=== PATIENT | male | born 1950 | race Caucasian/White ===

== ENCOUNTER → 2016-09-20 | Outpatient (CLI) | payer OTHER ==
[~2016-09-20] VITALS: Ht 177.8 cm; Wt 94.1 kg
[~2016-09-20] MED LIST: AMBIEN 10 MG TA10 MG PO; CELEXA 10 MG TA10 M1 PO; CHANTIX1 MG PO; FENOFIBRIC ACI135 MG PO; FLOMAX0.4 MG PO; GABAPENTIN600 M1 PO; GLUCOPHAGE500 MG PO; HYDROCODON-ACE1 EAC7 PO; HYDROXYCHLOROQ200 M1 PO; JANUMET 50-5001 EACH PO; JANUMET XR 1001 EACH PO; LEVEMIR100 UNIT/1 IM; LIPITOR40 MG PO; MELOXICAM15 MG PO; MULTIVITAMINS1 EAC7 PO; NOVOLOG100 UNIT/M SUBQ; TACLONEX OINTME60 GM TP; TIZANIDINE HCL4 M1 PO; TRAMADOL 50 MG50 MG PO
--- NOTE | ~2016-09-20 | HPC ---
[facility] [place] [address] PAIN MANAGEMENT CONSULTATION Name: ANGEL GODDARD Room #: REG [facility] Dipak#: [id number] Admission: 09/20/16 Attend Phys: Errol Botello DO Discharge: Date of : 51 Report #: [id number] THIS REPORT FOR: //name// CC: Rufino Botello The patient is a pleasant 65-year-old gentleman last seen in the pain clinic 04/30/2016, diagnosed with symptomatic lumbar radiculopathy, prior had good relief with epidural injections greater than 60% relief. He sought preauthorization for repeat epidural injections, had some difficulty getting the coverage, but he ultimately return to the pain clinic with ongoing radicular symptoms with authorization for epidural injection under fluoroscopy. The patient notes the pain is left greater than right, but if he stands it does, bilateral pain is with walking or standing greater than 20 minutes, posterior leg into the foot. He has been taking hydrocodone, Meloxicam and tizanidine for Dr. Echevarria with some efficacy. PHYSICAL EXAMINATION: Today shows pleasant 65-year-old gentleman, BMI is 29.8 kilograms per meter squared. Vital signs stable. Rises from chair using armrests, antalgic gait, positive straight leg raise on the left, decreased hip flexion strength. Lumbar flexion is limited about 80 degrees, mildly ataxic. ASSESSMENT: Symptomatic lumbar radiculopathy secondary to fairly significant spinal stenosis, does have narrowing down to 6 mm at L3-L4, 6 mm at L4-L5 with neural foraminal narrowing. ASSESSMENT: Symptomatic lumbar radiculopathy. RECOMMENDATION: Lumbar epidural injection under fluoroscopy today at L4-L5 left to the midline. Follow up in 2-3 weeks for reevaluation. Consider transforaminal epidural injection if indicated clinically. ASSESSMENT: Symptomatic lumbar radiculopathy secondary to spinal stenosis. PROCEDURE: Lumbar epidural steroid injection. PROCEDURE NOTE: After both written and informed consent to include risk of spinal cord damage, increased pain, weakness and dural puncture, the patient was taken to the fluoroscopy suite, placed in the prone position. After sterile prep and drape, a skin wheal with lidocaine was raised. A 22-gauge epidural Tuohy needle was inserted in the midline at L4-L5 with good loss to resistance. Negative aspiration for cerebrospinal fluid or blood was noted. Then 1 mL of Omnipaque under biplanar fluoroscopy showed good spread within the epidural space. This was followed with 80 mg of triamcinolone plus 1 mL of 1.5% preservative-free Xylocaine, 0.5 mL Xylocaine was then injected to flush the [address] [address] PAIN MANAGEMENT CONSULTATION Name: ANGEL GODDARD Room #: REG CLJovanna Quesada#: [id number] Admission: 09/20/16 Attend Phys: Errol Botello DO Discharge: Date of : 51 Report #: [id number] needle; it was removed. The patient was monitored for an appropriate period of time and discharged in good and stable condition. By: [id number] Errol Botello DO /nt
[2016-09-20 13:15] VITALS: BP 132/76
== END | disposition home or self-care (01) ==
LOC: PAIN 12:39
DX: M54.16 Radiculopathy, lumbar region (principal); Z87.891 Personal history of nicotine dependence

== ENCOUNTER → 2016-10-11 | Outpatient (CLI) | payer OTHER ==
--- NOTE | ~2016-10-11 | HPC ---
[facility] [place] [address] PAIN MANAGEMENT CONSULTATION Name: ANGEL GODDARD Room #: REG [facility] Dipak#: [id number] Admission: 10/11/16 Attend Phys: Errol Botello DO Discharge: Date of : 51 Report #: [id number] THIS REPORT FOR: //name// CC: Rufino Botello The patient is a pleasant 65-year-old gentleman, last seen in the pain clinic 09/20/2016. He was given a midline epidural injection at L4-L5 with significant improvement of baseline pain, the patient notes 50% improvement in his functional status. Incidentally, he has had prior injections in 2013, again with overall improvement of functional status. He returns to pain clinic today. To his credit, he has cut down from 2 packs of cigarettes a day to 1 pack of cigarettes a day. He was; however, further counseled regarding smoking cessation. He notes he is at least 50% improvement in functional status, states he still has a neurogenic claudication, but his recovery time is less than half had been, he can walk for 5-10 minutes before he has to sit down, but he "recovers" and is able to walk much earlier. PHYSICAL EXAMINATION: Relatively unchanged. He has ongoing pain primarily in the left anterior thigh and down the leg. Some weakness with hip flexion. Denies bowel or bladder continence changes or . ASSESSMENT: Symptomatic lumbar radiculopathy, incremental improvement with one epidural injection. RECOMMENDATION: Repeat epidural injection with fluoroscopy today. Follow up in 3-4 weeks for reevaluation. PROCEDURE NOTE Lumbar epidural injection under fluoroscopy in a gentleman with diabetes. PROCEDURE: Lumbar epidural injection under fluoroscopy. PROCEDURE NOTE: After both written and informed consent to include risk of spinal cord damage, increased pain, weakness and dural puncture, the patient was taken to the fluoroscopy suite, placed in the prone position. After sterile prep and drape, a skin wheal with lidocaine was raised. A 22-gauge epidural Tuohy needle was inserted in the midline at L4-L5 with good loss to resistance. Negative aspiration for cerebrospinal fluid or blood was noted. Then 1 mL of Omnipaque under biplanar fluoroscopy showed good spread within the epidural space. This was followed with 60 mg of triamcinolone plus 1 mL of 1.5% preservative-free Xylocaine, 0.5 mL Xylocaine was then injected to flush the [address] [address] PAIN MANAGEMENT CONSULTATION Name: ANGEL GODDARD Room #: REG CLI Dipak#: [id number] Admission: 10/11/16 Attend Phys: Errol Botello DO Discharge: Date of : 51 Report #: [id number] needle; it was removed. The patient was monitored for an appropriate period of time and discharged in good and stable condition. By: [id number] Errol Botello DO /paula
== END ==
LOC: PAIN 06:30
DX: M54.16 Radiculopathy, lumbar region (principal); F17.210 Nicotine dependence, cigarettes, uncomplicated; I10 Essential (primary) hypertension

== ENCOUNTER → 2017-02-16 | Outpatient (CLI) | payer OTHER ==
[~2017-02-16] MED LIST changes: +ASPIR 8181 M1 PO; +BYSTOLIC 5 MG5 M1 PO; +COZAAR 50 MG TA50 M2 PO; -LEVEMIR100 UNIT/1 IM; +LEVEMIR100 UNIT/1 SUBQ; +PLAVIX 75 MG TA75 M1 PO; +PROAIR HFA8.5 GM INH; +TRADJENTA5 MG
== END ==
LOC: ULTRA
DX: Z01.818 Encounter for other preprocedural examination (principal)

== ENCOUNTER 2017-02-28 05:04 | Inpatient (IN) | payer OTHER ==
[2017-02-17 09:50] LABS: HEMATOCRIT 29.5 % (42.0-52.0); HEMOGLOBIN 10.3 gm/dL (14.0-18.0); MCH 33.9 pg (26.0-34.0); RBC 3.05 mil/uL (4.50-6.00); RDW 13.8 % (10.5-14.5); WBC 2.7 thou/uL (4.0-11.0)
[2017-02-17 10:02] LABS: CALCIUM 9.3 mg/dL (8.5-10.1); CREATININE 1.5 mg/dL (0.7-1.3); POTASSIUM 3.6 mmol/L (3.5-5.1)
[2017-02-17 10:04] LABS: APTT 25.7 Seconds (24.5-32.8); INR 1.2
[2017-02-17 10:59] LABS: URINE BILIRUBIN NEGATIVE (Negative); URINE BLOOD NEGATIVE (Negative); URINE COLOR YELLOW; URINE GLUCOSE-RANDOM* TRACE (Negative); URINE KETONES NEGATIVE (Negative); URINE LEUKOCYTES-REFLEX NEGATIVE (Negative); URINE PROTEIN (DIPSTICK) NEGATIVE (Negative); URINE SPECIFIC GRAVITY >= 1.030 (1.003-1.035); URINE UROBILINOGEN 0.2 E.U./dl (0.2-1.0)
[~2017-02-28] VITALS: Ht 177.8 cm; Wt 94.0 kg
--- NOTE | ~2017-02-28 | EKG ---
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
--- NOTE | ~2017-02-28 | HC ---
[facility] [place] [address] CONSULTATION Name: ANGEL GODDARD Room #: 219-P [facility] IN .R.#: [id number] Admission: 03/01/17 Attend Phys: Fernando Medeiros MD Discharge: 03/08/17 Date of : 51 Report #: [id number] THIS REPORT FOR: //name// CC: Fernando Orourkemarcelina Mcclure DATE OF SERVICE: 03/08/2017 HISTORY OF PRESENT ILLNESS: This is a 66-year-old white male with history of coronary artery disease, who underwent coronary artery bypass grafting x 5. His course has been complicated by acute hypoxemic respiratory failure, prolonged ICU stay, atrial fibrillation with rapid ventricular rate, acute renal insufficiency, diabetes. He has been followed closely by Cardiology, Pulmonary Medicine. Nephrology as well as Cardiovascular Surgery and Internal Medicine. He has medical complexity with generalized debilitation. He needs 6 liters with activity, 3 liters at rest. We are seeing him in rehabilitation medicine consultation. PAST MEDICAL HISTORY: Peripheral vascular disease with iliac arterial for seizure in both legs, longstanding diabetes mellitus, hypertension, hypercholesterolemia. PAST SURGICAL HISTORY: Includes the previous hernia repair. MEDICATIONS: Meloxicam, fenofibrate, Neurontin, insulin, atorvastatin. SOCIAL HISTORY: Smoker 1 pack a day. He uses some alcohol. Lives by himself. ALLERGIES: ALLERGIES ARE NOTED TO AVANDIA. REVIEW OF SYSTEMS: Lives in a house alone, noted assist device, 3 steps in. He does have adult kids who live locally. Did not offer any current complaints of chest pain, shortness of breath, abdominal discomfort. Notes he does become short of breath with fairly limited activity. No focal extremity pain complaints. He notes he does have some decreased sensation of his feet with some apparent peripheral neuropathy with his diabetes. Did not offer any complaints of swallowing problems or headaches. PHYSICAL EXAMINATION: GENERAL: A 66-year-old white male in no obvious distress. VITAL SIGNS: Last recorded temperature 36.4, pulse 72, respirations 20, blood pressure 137/89. He is alert. He is pleasant. HEENT: Appeared to be benign. NEUROLOGIC: Cranial nerves are grossly intact. Facies are symmetric. He is on nasal prong O2, currently 3 liters. He has functional range of motion of both [facility] [address] [place] [address] CONSULTATION Name: ANGEL GODDARD Room #: 219-P [facility] IN [facility].#: [id number] Admission: 03/01/17 Attend Phys: Fernando Medeiros MD Discharge: 03/08/17 Date of : 51 Report #: [id number] upper extremities. Strength is grade 4-/5. DTRs are trace to 1. Lower extremities, no focal calf swelling, trace distal lower extremity edema, functional range of motion with strength grade 4-/5. 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 Functionally, he is mod assist with sit to stand and ambulated 30 feet min assist with a roller walker. He did need up to 6 liters oxygen in Occupational Therapy has been mod assist. At rest is at 3 liters. ASSESSMENT: A 66-year-old white male with the following problem list: 1. Medical complexity with generalized debilitation. 2. Acute hypoxemic respiratory failure with atelectasis and effusions still on nasal prong O2, 3 liters with 6 liters with activity. 3. Pulmonary nodule, right upper lobe, question atelectasis. Will need followup. 4. Coronary artery bypass grafting x 5 on 03/01/2017. 5. Acute renal insufficiency. 6. Diabetic neuropathy. 7. Question of systemic lupus erythematosus. Note that the plan was to hold Plaquenil and recheck serologies. PLAN: The patient is a candidate for an acute in-hospital inpatient rehabilitation stay. From a preadmission screening perspective: 1. Prior level of function is well delineated above. 2. Expected level of improvement would be for the patient to become modified independent with transfers, mobility and ADLs with hopes of returning back to the prior living situation. 3. Evaluation of the patient's risk for clinical complications. The patient does have multiple medical comorbidities as noted above. 4. Condition that caused the need for rehabilitation is the medical complexity with generalized debilitation. 5. Treatments needed would include PT and OT 1 to 1-1/2 hours per day each five days a week throughout the duration of the acute inpatient rehabilitation stay. 6. Anticipated discharge destination would be back to the home setting. 7. Would anticipate home healthcare therapies as the patient is ready for discharge. 8. The patient meets diagnostic criteria for an acute in-hospital inpatient rehabilitation stay. He meets medical necessity criteria. He does have the tolerance for an acute in-hospital inpatient rehabilitation stay and has appropriate discharge goals back to the home setting. By: 1004 Jacinto Montenegro MD /[facility]
--- NOTE | ~2017-02-28 | EKG ---
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 : 1950 Requested By: Leatha Alicea Order Number: [id number] MD: John Patterson Measurements Intervals [place] Rate: 74 P: 16 WV: 160 QRS: 36 QRSD: 144 T: -13 QT: 462 QTc: 513 Interpretive Statements Sinus rhythm Right bundle branch block Inferior infarct, age indeterminate Compared to ECG 02/17/2017 09:44:05 Right bundle-branch block now present Myocardial infarct finding now present Electronically Signed On 03-02-2017 20:14:09 CDT by John Patterson [email or web address] <ELECTRONICALLY SIGNED> By: John Patterson MD 03/02/172013 5 5 John Patterson MD /EPI
--- NOTE | ~2017-02-28 | HC ---
[facility] [place] [address] CONSULTATION Name: ANGEL GODDARD Room #: 240-P ADM IN M.R.#: [id number] Admission: 03/01/17 Attend Phys: Fernando Medeiros MD Discharge: Date of : 51 Report #: [id number] THIS REPORT FOR: //name// CC: Fernando Krishnamurthyramila Mcclure DATE OF SERVICE: 03/04/2017 REASON FOR CONSULTATION: Acute respiratory failure. Forty minutes of critical care time. IMPRESSION: 1. Acute hypoxemic respiratory failure, likely related to sedation, debilitation and atelectasis. 2. Status post coronary artery bypass graft for coronary artery disease. 3. Acute on chronic renal failure. 4. Hypertension. 5. Diabetes. 5. Hypotension. 6. Pneumothorax, resolved with chest tube. PLAN: Monitor mental status closely, use Narcan p.r.n., continue BiPAP, continue EzPAP as able, being conscious that he had a pneumothorax post-surgery. Usual ICU protocol. HISTORY OF PRESENT ILLNESS: A 66-year-old with history of diabetes with neuropathy, 5-vessel coronary bypass on 03/01, was doing well, this morning became less interactive, decreased mental status and hypoxic. We were called in urgent consultation. The patient was given Narcan and placed on BiPAP. We were at the uxmev-lr-gxviuego; however, he was speaking more. Saturation was improving, therefore, did not proceed with intubation. The patient followed commands. PAST MEDICAL HISTORY: Obtained from chart. HOME MEDICATIONS: Included fenofibrate, gabapentin, insulin, meloxicam, atorvastatin. ALLERGIES: AVANDIA. SOCIAL HISTORY: Positive for tobacco, a pack a day. Positive ETOH, lives alone. REVIEW OF SYSTEMS: Lethargic, unable to give history. Per chart, has peripheral vascular disease with iliac artery procedures, hernia repair. [facility] [address] [place] [address] CONSULTATION Name: ANGEL GODDARD Room #: 240-P [facility] IN [facility]#: [id number] Admission: 03/01/17 Attend Phys: Fernando Medeiros MD Discharge: Date of : 51 Report #: [id number] Diabetes. PHYSICAL EXAMINATION: On exam this morning, very lethargic. Temp 98.7, pulse 70, respiratory rate 20, BP 77/57. After Narcan and BiPAP and seen later this afternoon, he was on nasal cannula 8 liters, up in chair. I just discussed with nurse. At present, he is back in bed on BiPAP. Lungs: Decreased breath sounds. Heart: Regular. Abdomen: Bowel sounds present. Extremities showed trace edema. Moved all extremities. LABORATORY DATA: The pH 7.443, pCO2 28, pO2 85, bicarb 19 on 8 liters. Lactic acid 1.6. Venous Doppler was negative. Echo showed 55-60% EF. No pericardial effusion, PA pressure was 40. We will follow closely with you. By: 1858 0622 Eva Pace MD /paula
--- NOTE | ~2017-02-28 | HC ---
[facility] [place] [address] CONSULTATION Name: ANGEL GODDARD Room #: 240-P ADM IN M.R.#: [id number] Admission: 03/01/17 Attend Phys: Fernando Medeiros MD Discharge: Date of : 51 Report #: [id number] THIS REPORT FOR: //name// CC: Fernando Mcclure HISTORY OF PRESENT ILLNESS: The patient is a 66-year-old male who is status post bypass surgery. The patient has had progressive peripheral vascular disease with prior iliac interventions by Dr. Baker and subsequently was found to have significant 3-vessel coronary disease at that setting with some accelerating, but stable anginal symptoms. Admitted today and is status post 5-vessel bypass surgery. He is just now extubated and hemodynamically stable. Pacer is off. He is now in sinus rhythm in the 70s. He had a GUTHRIE to an LAD, radial Y graft to a diagonal, radial to ramus and then to an OM, and an SVG to the right, so 5-vessels in total. He has preserved LV function. Mild carotid disease was noted previously. History of hypertension, hypercholesterolemia, type 2 diabetes, and peripheral vascular disease as stated. Also, prior hernia repair and neck surgery. MEDICATIONS: At home: Insulin, fenofibrate, atorvastatin 40, Flexeril, fish oil, gabapentin, hydrocodone, insulin, Meloxicam, nystatin, tamsulosin, Zanaflex, and Ambien. SOCIAL HISTORY: Tobacco user, a pack a day. Moderate alcohol use. He is accompanied by a brother. ALLERGIES: AVANDIA. REVIEW OF SYSTEMS: Essentially negative except for stated above. PHYSICAL EXAMINATION: VITAL SIGNS: Pulse 70s, blood pressure 136/68. PA pressure is 30/16. GENERAL: He is awake, alert. He is extubated on a shield. HEENT: Eyes reveal xanthelasmas. Pharynx is clear. NECK: Shows preserved upstrokes without JVD or bruits. LUNGS: Clear anteriorly, slightly diminished in the bases. CARDIOVASCULAR: S1, S2 distant. Extensive bandage over his chest, he is postop. ABDOMEN: Soft, slightly distended, nontender. EXTREMITIES: Reveal trace of edema. Distal pulses diminished, but intact. NEUROLOGIC: Appears intact. MUSCULOSKELETAL: Generalized arthritic changes. LABORATORY DATA: Does show some significant anemia here postop, that actually has improved at 9.5 and 27.5 most recently. Creatinine 1.5. Potassium 4.4. ASSESSMENT: [facility] [address] [place] [address] CONSULTATION Name: ANGEL GODDARD Room #: [facility]#: [id number] Admission: 03/01/17 Attend Phys: Fernando Medeiros MD Discharge: Date of : 51 Report #: [id number] 1. Coronary artery disease with status post coronary artery bypass graft, 5 vessel, as stated above. 2. Hypertension. 3. Hypercholesterolemia. 4. Diabetes. 5. Peripheral vascular disease with a history of iliac stents recently. 6. Tobacco abuse. RECOMMENDATIONS AND PLAN: We will continue to follow postop course here. He is hemodynamically stable. Insulin drip, pressors, low-dose insulin and Cardene drips currently. We will presumably wean off. We will continue to follow with you. Thank you for allowing us to assist with the care of this patient. <ELECTRONICALLY SIGNED> By: Oliver Rangel MD, FACC 03/02/17 1622 2215 2301 Oliver Rangel MD, FACC /nt
--- NOTE | ~2017-02-28 | 2DMMODE ---
[facility] [place] [address] 2 D/M-MODE ECHOCARDIOGRAM Name: ANGEL GODDARD Room #: 240-P ADM IN M.R.#: [id number] Admission: 03/01/17 Attend Phys: Fernando Medeiros, Discharge: Date of : 52 Date of Service: 03/04/17 1033 Report #: [id number] THIS REPORT FOR: //name// APPROVED REPORT Study performed: 03/04/2017 09:08:56 EXAM: Limited 2D, Doppler, and color-flow Echocardiogram Patient Location: ICU Room #: 240 Status: stat BSA: 2.13 HR: 89 bpm BP: 77/54 mmHg Rhythm: NSR Other Information Study Quality: Adequate Technically limited study due to no patient mobility of cooperation. Indications STAT echo. Hypotension. Status post CABG 03/01/17 Tricuspid Valve TR Peak Bruce.: 2.48 m/s RAP Estimate: 15.00 mmHg TR Peak Gr.: 24.66 mmHg PA Pressure: 40.00 mmHg Left Ventricle The left ventricle is normal size. There is normal LV segmental wall motion. Mild concentric left ventricular hypertrophy. Left ventricular systolic function is normal. LVEF is 55-60%. Right Ventricle The right ventricle is normal size. Atria The left atrium size is normal. The right atrium size is normal. Aortic Valve The aortic valve is normal in structure. Mitral Valve The mitral valve is normal in structure. [facility] [address] [place] [address] 2 D/M-MODE ECHOCARDIOGRAM Name: ANGEL GODDARD Room #: 240-P ADM IN M.R.#: [id number] Admission: 03/01/17 Attend Phys: Fernando Medeiros, Discharge: Date of : 52 Date of Service: 03/04/17 1033 Report #: [id number] Tricuspid Valve The tricuspid valve is normal in structure. Mild tricuspid regurgitation. Estimated PAP of 40mmHg. Great Vessels IVC is dilated and collapses <50% with inspiration. Pericardium A pericardial effusion is present without echocardiographic evidence of tamponade. Left and right pleural effusions noted. <Conclusion> The left ventricle is normal size. LVEF is 55-60%. The right ventricle is normal size. The aortic valve is normal in structure. The mitral valve is normal in structure. A pericardial effusion is present without echocardiographic evidence of tamponade. Left and right pleural effusions noted. <ELECTRONICALLY SIGNED> By: Gee Khan MD 03/04/173 32 103 Gee Khan MD /INF
--- NOTE | ~2017-02-28 | EKG ---
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 : 1950 Requested By: Leatha Alicea Order Number: [id number] MD: John Patterson Measurements Intervals [place] Rate: 67 P: 43 NM: 174 QRS: 36 QRSD: 145 T: -8 QT: 477 QTc: 504 Interpretive Statements Sinus rhythm Right bundle branch block Inferior infarct, age indeterminate Lateral leads are also involved Compared to ECG 02/17/2017 09:44:05 Right bundle-branch block now present Myocardial infarct finding now present Electronically Signed On 03-02-2017 20:30:29 CDT by John Patterson [email or web address] <ELECTRONICALLY SIGNED> By: John Patterson MD 03/02/172029 29 29 John Patterson MD /EPI
--- NOTE | ~2017-02-28 | HC ---
[facility] [place] [address] CONSULTATION Name: ANGEL GODDARD Room #: 219-P [facility] IN .R.#: [id number] Admission: 03/01/17 Attend Phys: Fernando Medeiros MD Discharge: 03/08/17 Date of : 52 Report #: [id number] THIS REPORT FOR: //name// CC: Fernando Krishnamurthyramila Reddyaker DATE OF SERVICE: 03/03/2017 NEPHROLOGY CONSULTATION REASON FOR CONSULTATION: Acute kidney injury. HISTORY OF PRESENT ILLNESS: A 66-year-old gentleman with longstanding diabetes mellitus with neuropathy and some underlying apparent renal disease, underwent a 5-vessel coronary bypass 2 days ago. He typically has difficult to controlling rather high blood pressures. His blood pressure postoperatively has been low in the range of 90/60 consistently along with this, his urine output has dropped and creatinine has risen. PAST MEDICAL AND SURGICAL HISTORY: Peripheral vascular disease with iliac, arterial procedures in both legs, previous hernia repair, longstanding diabetes as mentioned, no known definitive retinopathy, hypertension, hypercholesterolemia. HOME MEDICATIONS: Included meloxicam, fenofibrate, gabapentin, insulin, atorvastatin. SOCIAL HISTORY: He is a smoker, smokes a pack a day. He uses some alcohol. He lives by himself. ALLERGIES: Reported to AVMARCELINOIA. REVIEW OF SYSTEMS: GENERAL: The patient is somewhat lethargic, seen in the ICU today. EYES: His vision is reasonably good. ENT: Hearing okay, swallows okay. Denies mouth ulcers. ENDOCRINE: Positive for the diabetes. RESPIRATORY: Maybe slightly short winded. CARDIAC: He has had of course the bypass. He has got pain at the site of his sternotomy. GASTROINTESTINAL: He has got a poor appetite currently, but not vomiting. GENITOURINARY: Aguila catheter in place. NEUROLOGIC: He has got peripheral neuropathy with numbness in the feet, some tingling. PHYSICAL EXAMINATION: [facility] [address] [place] [address] CONSULTATION Name: ANGEL GODDARD Room #: 219-P [facility]#: [id number] Admission: 03/01/17 Attend Phys: Fernando Medeiros MD Discharge: 03/08/17 Date of : 52 Report #: [id number] GENERAL: This is a chronically ill-appearing gentleman, weak, lethargic. SKIN: Unremarkable. SKELETAL: Well developed, well nourished. HEENT: Extraocular movements are full. Vision grossly intact. No scleral icterus. Hearing intact. Mucous membranes are slightly dry. Nasal cannula oxygen in place. NECK: Veins slightly distended. CHEST: Shows diminished breath sounds at the bases. HEART: Regular. ABDOMEN: Soft and nontender. The chest tubes are in place. EXTREMITIES: Show no edema. Peripheral pulses diminished. LABORATORY DATA: Hemoglobin is 9.3, white count 12.5, platelets 158. Sodium 137, potassium 5.7, chloride ____, bicarbonate 22, BUN 46, creatinine 3.3, glucose is 284. ASSESSMENT AND PLAN: 1. Acute kidney injury. Blood pressures down. Undoubtedly his kidneys have some difficulty with water regulating. He of course could have an acute kidney injury with acute tubular necrosis. Postoperatively, we will have to watch him closely. I will check urinary electrolytes and these should help. I will check urinalysis and this should help and we will certainly follow him closely. 2. Status post coronary bypass surgery. 3. Diabetes mellitus with peripheral neuropathy. 4. Difficult hypertension. <ELECTRONICALLY SIGNED> By: Oliver Ramos MD 03/09/17 1044 [id number] 0928 Oliver Ramos MD /nt
--- NOTE | ~2017-02-28 | O ---
[facility] [place] [address] [address] OPERATIVE REPORT Name: ANGEL GODDARD Room #: 219-P [facility] IN M.R.#: [id number] Admission: 03/01/17 Attend Phys: Fernando Medeiros MD Discharge: 03/08/17 Date of : 52 Report #: [id number] THIS REPORT FOR: //name// CC: Oliver Rangel MD [facility] Fernando Mcclure DATE OF SERVICE: 03/01/2017 PREOPERATIVE DIAGNOSES: Coronary artery disease, exertional angina. FINAL DIAGNOSES: Coronary artery disease, exertional angina. OPERATIVE PROCEDURE PERFORMED: 1. Coronary artery bypass grafting x 5 with left internal mammary artery to the left anterior descending, radial artery Y graft to diagonal vessel, radial artery graft to ramus intermedius and then to obtuse marginal and saphenous vein graft to posterior descending artery. 2. Left radial artery harvest. SURGEON: Fernando Medeiros MD. PUBLIC WELFARE DIRECTOR: GUILLE Torres. ANESTHESIA: General. OPERATIVE INDICATIONS: The patient is a 66-year-old male with known history of multiple medical problems. He has presented with symptoms consistent with exertional angina. He has undergone evaluation showing evidence of significant multivessel coronary artery disease with preserved left ventricular systolic function. The patient is admitted to the hospital now, brought to the operating room for coronary artery bypass grafting after informed consent has been obtained. DESCRIPTION OF PROCEDURE: The patient was brought to the operating room, placed on the OR table in supine position. After anesthesia was induced via the general endotracheal route and monitoring lines have been positioned, the patient was prepped and draped in sterile fashion with chlorhexidine. I first harvested radial artery from the left forearm using a Harmonic scalpel. Concomitantly, saphenous vein was harvested from left lower extremity using an endoscopic technique. I then performed a median sternotomy incision and left internal mammary artery was harvested in standard fashion. I then opened the pericardium, systemically anticoagulated the patient with heparin. Cannulae were placed in the ascending aorta and the right atrium. An antegrade cardioplegic cannula was positioned and cardiopulmonary bypass was begun. A retrograde cardioplegic cannula was positioned under low flow conditions, the [facility] [address] [place] [address] OPERATIVE REPORT Name: NAZANGEL MORROW Ulysses Room #: 219-P [facility] IN [facility].#: [id number] Admission: 03/01/17 Attend Phys: Fernando Medeiros MD Discharge: 03/08/17 Date of : 52 Report #: [id number] aorta was cross clamped, the heart was arrested with 800 mL cold antegrade cardioplegia, followed by 500 mL cold retrograde cardioplegia. This was augmented with topical ice slush. Diastolic arrest was achieved and maintained throughout this operation with intermittent doses of cold retrograde and antegrade cardioplegia as well as cardioplegia given down grafts and topical ice slush. We first opened up the right coronary artery right at its bifurcation. This vessel was very calcific and heavily diseased at this site. We were able to construct the distal anastomosis in an end-to-side fashion with 7-0 Prolene at this site with some difficulty due to the calcification present. Next, we opened up the obtuse marginal vessel. It was about a 1.8 mm vessel. A distal anastomosis was carried out in end-to-side fashion with 7-0 Prolene utilizing the radial artery. We then constructed a [id number]-[id number] anastomosis of this same segment of radial artery to the ramus intermedius vessel. This was done with 7-0 Prolene as well. This radial artery was brought around and anastomosed to the ascending aorta with 7-0 Prolene after a 4.8 punch aortotomy was created. Next, the saphenous vein graft was anastomosed to the ascending aorta with 6-0 Prolene after a 4.8 punch aortotomy was created. Next, we opened up the diagonal vessel. It was about a 1.7 mm vessel that was significantly diseased proximally as I was unable to pass a 1 mm probe for a significant distance. A distal anastomosis was carried out in end-to-side fashion with 7-0 Prolene. Next, the MIGUEL ANGEL was brought on the field. The MIGUEL ANGEL was of good size and had good flow. The LAD was opened. It was a 2 mm vessel and anastomosis was carried out in end-to-side fashion with 7-0 Prolene. The pedicle was tacked to the epicardium with 6-0 Prolene. We then took the short segment of radial artery graft and anastomosed it to the left internal mammary artery after a left internal mammary artery arteriotomy was made. This was done with 7-0 Prolene. Next, we gave warm cardioplegia both retrograde and antegrade. We took care to deair the ascending aorta and the vein graft. Under low flow conditions aortic crossclamp was released to begin the period of reperfusion. The patient was rewarmed to 37 degree centigrade. Three successive doses of calcium and a single dose of magnesium were given every 3-5 minute intervals. Atrial and ventricular pacing wires were placed. The patient spontaneously returned to normal sinus rhythm and did not require defibrillation. After a suitable period of reperfusion, the lungs were reinflated. The patient was weaned from cardiopulmonary bypass without inotropic support. Protamine was given to reverse the heparin, decannulation was effected. Once satisfactory hemostasis was achieved, I placed two 32-Citizen [place] chest tube at the anterior mediastinum brought out through separate stab incisions and a 24 Eric drain was placed in the left pleural space. The sternum was closed with #7 wire. The fascia, subcutaneous and skin were closed in multiple layers of absorbable suture. The procedure was completed. The patient was taken to the ICU in stable condition. [address] [address] OPERATIVE REPORT Name: ANGEL GODDARD Room #: 219-P [facility] IN [facility].#: [id number] Admission: 03/01/17 Attend Phys: Fernando Medeiros MD Discharge: 03/08/17 Date of : 52 Report #: [id number] Cardiopulmonary bypass time and crossclamp time is not available to me at the time of this dictation. <ELECTRONICALLY SIGNED> By: Fernando Medeiros MD 03/09/17 1352 1533 1607 Fernando Medeiros MD /nt
[2017-03-01 07:20] VITALS: BP 142/94
[2017-03-01 13:08] LABS: HEMOGLOBIN 6.9 gm/dL (14.0-18.0); MCH 33.5 pg (26.0-34.0); MCHC 34.8 g/dL (28.0-37.0); MCV 96.4 fL (80.0-100.0); RBC 2.06 mil/uL (4.50-6.00); RDW 13.5 % (10.5-14.5); WBC 6.6 thou/uL (4.0-11.0)
[2017-03-01 13:09] LABS: HEMATOCRIT 19.9 % (42.0-52.0)
[2017-03-01 13:21] LABS: APTT 28.7 Seconds (24.5-32.8); FIBRINOGEN 157.3 mg/dL (210-360); INR 1.6; PROTIME 16.1 Seconds (9.3-11.4)
[2017-03-01 13:52] LABS: POC BE -6 mmol/L (-2.0 to +3.0); POC CA IONIZED 4.7 mg/dL (4.5-5.3); POC FiO2 100 %; POC GLUCOSE 143 mg/dL (70-99); POC HCO3 20.1 mmol/L (22.0-26.0); POC HEMOGLOBIN 8.5 g/dL (14.0-18.0); POC SODIUM 139 mmol/L (136-145); POC pCO2 39.5 mmHg (35.0-45.0); POC pH 7.315 (7.360-7.450)
[2017-03-01 13:52] LABS: POC BE -1 mmol/L (-2.0 to +3.0); POC CA IONIZED 4.9 mg/dL (4.5-5.3); POC FiO2 100 %; POC GLUCOSE 189 mg/dL (70-99); POC HCO3 23.6 mmol/L (22.0-26.0); POC HEMOGLOBIN 9.5 g/dL (14.0-18.0); POC POTASSIUM 3.9 mmol/L (3.5-5.1); POC SODIUM 139 mmol/L (136-145); POC pCO2 38.9 mmHg (35.0-45.0)
[2017-03-01 13:52] LABS: POC BE -1 mmol/L (-2.0 to +3.0); POC CA IONIZED 4.7 mg/dL (4.5-5.3); POC FiO2 100 %; POC GLUCOSE 153 mg/dL (70-99); POC HCO3 25.1 mmol/L (22.0-26.0); POC HEMOGLOBIN 7.5 g/dL (14.0-18.0); POC POTASSIUM 4.4 mmol/L (3.5-5.1); POC SODIUM 139 mmol/L (136-145); POC pCO2 45.6 mmHg (35.0-45.0); POC pH 7.349 (7.360-7.450)
[2017-03-01 13:52] LABS: POC BE -3 mmol/L (-2.0 to +3.0); POC CA IONIZED 4.9 mg/dL (4.5-5.3); POC FiO2 100 %; POC GLUCOSE 157 mg/dL (70-99); POC HCO3 22.4 mmol/L (22.0-26.0); POC HEMOGLOBIN 9.2 g/dL (14.0-18.0); POC POTASSIUM 3.7 mmol/L (3.5-5.1); POC SODIUM 140 mmol/L (136-145); POC pCO2 39.2 mmHg (35.0-45.0); POC pH 7.365 (7.360-7.450)
[2017-03-01 13:53] LABS: POC BE 0 mmol/L (-2.0 to +3.0); POC CA IONIZED 7.4 mg/dL (4.5-5.3); POC FiO2 100 %; POC GLUCOSE 140 mg/dL (70-99); POC HCO3 25.5 mmol/L (22.0-26.0); POC HEMOGLOBIN 7.1 g/dL (14.0-18.0); POC POTASSIUM 4.4 mmol/L (3.5-5.1); POC SODIUM 141 mmol/L (136-145); POC pCO2 47.3 mmHg (35.0-45.0)
[2017-03-01 13:53] LABS: POC BE -1 mmol/L (-2.0 to +3.0); POC CA IONIZED 4.7 mg/dL (4.5-5.3); POC FiO2 100 %; POC GLUCOSE 151 mg/dL (70-99); POC HCO3 24.5 mmol/L (22.0-26.0); POC HEMOGLOBIN 7.8 g/dL (14.0-18.0); POC POTASSIUM 4.3 mmol/L (3.5-5.1); POC SODIUM 140 mmol/L (136-145); POC pCO2 46.1 mmHg (35.0-45.0); POC pH 7.333 (7.360-7.450)
[2017-03-01 13:53] LABS: POC BE -2 mmol/L (-2.0 to +3.0); POC CA IONIZED 6.3 mg/dL (4.5-5.3); POC FiO2 100 %; POC GLUCOSE 130 mg/dL (70-99); POC HCO3 22.9 mmol/L (22.0-26.0); POC HEMOGLOBIN 7.8 g/dL (14.0-18.0); POC POTASSIUM 4.2 mmol/L (3.5-5.1); POC SODIUM 142 mmol/L (136-145)
[2017-03-01 13:53] LABS: POC BE 1 mmol/L (-2.0 to +3.0); POC CA IONIZED 4.7 mg/dL (4.5-5.3); POC FiO2 100 %; POC GLUCOSE 144 mg/dL (70-99); POC HCO3 26.6 mmol/L (22.0-26.0); POC HEMOGLOBIN 7.5 g/dL (14.0-18.0); POC POTASSIUM 4.8 mmol/L (3.5-5.1); POC SODIUM 142 mmol/L (136-145); POC pCO2 50.9 mmHg (35.0-45.0); POC pH 7.325 (7.360-7.450)
[2017-03-01 13:53] LABS: POC BE 4 mmol/L (-2.0 to +3.0); POC CA IONIZED 4.5 mg/dL (4.5-5.3); POC FiO2 100 %; POC GLUCOSE 144 mg/dL (70-99); POC HCO3 28.8 mmol/L (22.0-26.0); POC HEMOGLOBIN 7.1 g/dL (14.0-18.0); POC POTASSIUM 4.6 mmol/L (3.5-5.1); POC SODIUM 142 mmol/L (136-145); POC pCO2 48.9 mmHg (35.0-45.0); POC pH 7.377 (7.360-7.450)
[2017-03-01 14:26] LABS: ABG SAMPLE TYPE ARTERIAL; BE(vivo) -2.8 mmol/L (-2 to +3); HCO3 22.3 mmol/L (22.0-26.0); LACTATE 1.54 mmol/L (0.5-2.0); O2(CT) 12.3 mL/dL (15.0-23.0); O2Hb 97.1 % (92.0-98.0); PCO2 39.4 mmHg (35.0-45.0); PO2 149.2 mmHg (80.0-100.0); sO2 98.9 % (92.0-98.0); tCO2 23.5 mmol/L (24.0-30.0)
[2017-03-01 14:27] LABS: STICK SITE LINE; TIDAL VOLUME 700 ml
[2017-03-01 14:39] LABS: HEMATOCRIT 23.2 % (42.0-52.0); HEMOGLOBIN 8.1 gm/dL (14.0-18.0); MCH 33.5 pg (26.0-34.0); MCHC 34.7 g/dL (28.0-37.0); MCV 96.4 fL (80.0-100.0); RBC 2.41 mil/uL (4.50-6.00); RDW 13.5 % (10.5-14.5); WBC 8.1 thou/uL (4.0-11.0)
[2017-03-01 14:43] LABS: CALCIUM 10.7 mg/dL (8.5-10.1); CREATININE 1.6 mg/dL (0.7-1.3); MAGNESIUM 2.3 mg/dL (1.8-2.4); POTASSIUM 4.2 mmol/L (3.5-5.1)
[2017-03-01 17:20] LABS: ABG SAMPLE TYPE ARTERIAL; BE(vivo) -5.5 mmol/L (-2 to +3); HCO3 20.3 mmol/L (22.0-26.0); LACTATE 1.95 mmol/L (0.5-2.0); O2(CT) 14.5 mL/dL (15.0-23.0); O2Hb 98.3 % (92.0-98.0); PCO2 40.8 mmHg (35.0-45.0); PO2 218.8 mmHg (80.0-100.0); sO2 99.4 % (92.0-98.0); tCO2 21.6 mmol/L (24.0-30.0)
[2017-03-01 17:21] LABS: pH 7.315 (7.360-7.450)
[2017-03-01 17:22] LABS: TIDAL VOLUME 700 ml
[2017-03-01 18:27] LABS: ABG SAMPLE TYPE ARTERIAL; BE(vivo) -5.5 mmol/L (-2 to +3); HCO3 21.2 mmol/L (22.0-26.0); O2(CT) 14.7 mL/dL (15.0-23.0); O2Hb 98.1 % (92.0-98.0); PO2 175.8 mmHg (80.0-100.0); pH 7.273 (7.360-7.450); tCO2 22.7 mmol/L (24.0-30.0)
[2017-03-01 18:28] LABS: Pressure Support 8 cm H20; STICK SITE ALINE
[2017-03-01 18:59] LABS: HEMATOCRIT 27.5 % (42.0-52.0); HEMOGLOBIN 9.5 gm/dL (14.0-18.0)
[2017-03-01 19:03] LABS: CALCIUM 10.3 mg/dL (8.5-10.1); CREATININE 1.5 mg/dL (0.7-1.3); POTASSIUM 4.4 mmol/L (3.5-5.1)
[2017-03-01 21:02] LABS: ABG SAMPLE TYPE ARTERIAL; BE(vivo) -2.4 mmol/L (-2 to +3); LACTATE 1.86 mmol/L (0.5-2.0); O2(CT) 14.7 mL/dL (15.0-23.0); O2Hb 97.6 % (92.0-98.0); PCO2 42.4 mmHg (35.0-45.0); PO2 160.8 mmHg (80.0-100.0); STICK SITE LINE; pH 7.353 (7.360-7.450); tCO2 24.3 mmol/L (24.0-30.0)
[2017-03-01 21:03] LABS: Pressure Support 8 cm H20
[2017-03-01 22:30] LABS: ABG SAMPLE TYPE ARTERIAL; BE(vivo) -4.2 mmol/L (-2 to +3); HCO3 21.9 mmol/L (22.0-26.0); LACTATE 1.69 mmol/L (0.5-2.0); O2(CT) 14.7 mL/dL (15.0-23.0); O2Hb 96.9 % (92.0-98.0); PCO2 44.3 mmHg (35.0-45.0); PO2 129.1 mmHg (80.0-100.0); sO2 98.3 % (92.0-98.0); tCO2 23.3 mmol/L (24.0-30.0)
[2017-03-01 22:31] LABS: ABG COMMENT POST EXTUBATION; Face Shield 40 %; STICK SITE LINE; pH 7.312 (7.360-7.450)
[2017-03-02] VITALS (19 sets, daily range): BP systolic 79–142; BP diastolic 57–94
[2017-03-02 06:06] LABS: HEMATOCRIT 28.3 % (42.0-52.0); HEMOGLOBIN 9.6 gm/dL (14.0-18.0); MCH 33.5 pg (26.0-34.0); MCV 98.7 fL (80.0-100.0); RBC 2.86 mil/uL (4.50-6.00); RDW 13.7 % (10.5-14.5)
[2017-03-02 06:19] LABS: CALCIUM 9.8 mg/dL (8.5-10.1); CREATININE 1.7 mg/dL (0.7-1.3); POTASSIUM 4.8 mmol/L (3.5-5.1)
[2017-03-03] VITALS (24 sets, daily range): BP systolic 76–108; BP diastolic 50–78
[2017-03-03 05:44] LABS: HEMATOCRIT 27.8 % (42.0-52.0); HEMOGLOBIN 9.3 gm/dL (14.0-18.0); MCH 32.8 pg (26.0-34.0); MCHC 33.4 g/dL (28.0-37.0); MCV 98.4 fL (80.0-100.0); RBC 2.82 mil/uL (4.50-6.00); RDW 13.9 % (10.5-14.5); WBC 12.5 thou/uL (4.0-11.0)
[2017-03-03 05:54] LABS: CALCIUM 9.4 mg/dL (8.5-10.1); POTASSIUM 5.7 mmol/L (3.5-5.1)
[2017-03-03 06:02] LABS: CREATININE 3.3 mg/dL (0.7-1.3)
[2017-03-04] VITALS (81 sets, daily range): BP systolic 62–151; BP diastolic 37–92
[2017-03-04 03:30] LABS: ALBUMIN 2.8 g/dL (3.4-5.0); CALCIUM 8.1 mg/dL (8.5-10.1); CREATININE 4.1 mg/dL (0.7-1.3); PHOSPHORUS 4.9 mg/dL (2.5-4.9)
[2017-03-04 03:34] LABS: POTASSIUM 4.7 mmol/L (3.5-5.1)
[2017-03-04 09:15] LABS: ABG SAMPLE TYPE ARTERIAL; BE(vivo) -2.8 mmol/L (-2 to +3); HCO3 21.5 mmol/L (22.0-26.0); LACTATE 2.51 mmol/L (0.5-2.0); O2Hb 85.5 % (92.0-98.0); PCO2 34.8 mmHg (35.0-45.0); PO2 57.2 mmHg (80.0-100.0); STICK SITE R.BRACHIAL; pH 7.408 (7.360-7.450); sO2 90.3 % (92.0-98.0); tCO2 22.5 mmol/L (24.0-30.0)
[2017-03-04 16:54] LABS: ABG SAMPLE TYPE ARTERIAL; BE(vivo) -4.4 mmol/L (-2 to +3); HCO3 18.9 mmol/L (22.0-26.0); LACTATE 4.41 mmol/L (0.5-2.0); O2(CT) 12.7 mL/dL (15.0-23.0); O2Hb 94.4 % (92.0-98.0); PCO2 28.2 mmHg (35.0-45.0); PO2 84.6 mmHg (80.0-100.0); STICK SITE R.BRACHIAL; pH 7.443 (7.360-7.450); sO2 96.9 % (92.0-98.0); tCO2 19.7 mmol/L (24.0-30.0)
[2017-03-05] VITALS (51 sets, daily range): BP systolic 70–142; BP diastolic 49–97
[2017-03-05 05:14] LABS: HEMATOCRIT 22.7 % (42.0-52.0); HEMOGLOBIN 7.8 gm/dL (14.0-18.0); MCH 33.4 pg (26.0-34.0); MCHC 34.2 g/dL (28.0-37.0); MCV 97.5 fL (80.0-100.0); RBC 2.33 mil/uL (4.50-6.00); RDW 13.8 % (10.5-14.5)
[2017-03-05 05:26] LABS: ALBUMIN 2.5 g/dL (3.4-5.0); CALCIUM 8.3 mg/dL (8.5-10.1); CREATININE 3.3 mg/dL (0.7-1.3); PHOSPHORUS 4.4 mg/dL (2.5-4.9); POTASSIUM 4.4 mmol/L (3.5-5.1); TOTAL BILIRUBIN 0.5 mg/dL (<0.1-1.0); TOTAL PROTEIN 6.5 g/dL (6.4-8.2)
[2017-03-06] VITALS (42 sets, daily range): BP systolic 70–132; BP diastolic 48–96
[2017-03-06 05:43] LABS: HEMATOCRIT 21.9 % (42.0-52.0); HEMOGLOBIN 7.4 gm/dL (14.0-18.0); MCH 33.2 pg (26.0-34.0); MCHC 33.8 g/dL (28.0-37.0); MCV 98.4 fL (80.0-100.0); RBC 2.23 mil/uL (4.50-6.00); RDW 13.9 % (10.5-14.5); WBC 8.5 thou/uL (4.0-11.0)
[2017-03-06 05:58] LABS: ALBUMIN 2.6 g/dL (3.4-5.0); CALCIUM 8.3 mg/dL (8.5-10.1); CREATININE 3.6 mg/dL (0.7-1.3); PHOSPHORUS 4.8 mg/dL (2.5-4.9); POTASSIUM 4.3 mmol/L (3.5-5.1); TOTAL BILIRUBIN 0.5 mg/dL (<0.1-1.0); TOTAL PROTEIN 6.5 g/dL (6.4-8.2)
[2017-03-07 00:23] VITALS: BP 114/81
[2017-03-07 04:00] VITALS: BP 107/61
[2017-03-07 05:31] LABS: BASOPHILS 0.1 % (0.0-2.0); HEMATOCRIT 29.7 % (42.0-52.0); LYMPHOCYTES 10.1 % (24.0-44.0); MCH 31.4 pg (26.0-34.0); MCHC 33.6 g/dL (28.0-37.0); MCV 93.5 fL (80.0-100.0); PLATELET COUNT 107 thou/uL (150-400); POLYS 82.8 % (36.0-66.0); RBC 3.18 mil/uL (4.50-6.00); RDW 17.6 % (10.5-14.5); WBC 10.8 thou/uL (4.0-11.0)
[2017-03-07 05:39] LABS: MANUAL DIFF NO
[2017-03-07 05:46] LABS: ALBUMIN 2.8 g/dL (3.4-5.0); CALCIUM 8.9 mg/dL (8.5-10.1); CREATININE 3.2 mg/dL (0.7-1.3); PHOSPHORUS 4.3 mg/dL (2.5-4.9); POTASSIUM 4.4 mmol/L (3.5-5.1)
[2017-03-07 08:00] VITALS: BP 115/83
[2017-03-07 18:14] VITALS: BP 112/66
[2017-03-07 20:13] VITALS: BP 112/61
[2017-03-08 04:39] LABS: CALCIUM 8.8 mg/dL (8.5-10.1); CREATININE 2.5 mg/dL (0.7-1.3); PHOSPHORUS 4.2 mg/dL (2.5-4.9)
[2017-03-08 04:46] VITALS: BP 108/84
[2017-03-08 08:00] VITALS: BP 137/89
[2017-03-08 12:00] VITALS: BP 118/80
[2017-03-08] MEDS ORDERED: HYDROCODONE-AP1 EAC6 PO (14:10)
[2017-03-08] MEDS ORDERED: FAMOTIDINE 10 M10 MG PO (14:14)
[2017-03-08] MEDS ORDERED: FENOFIBRATE54 MG PO (14:14)
[2017-03-08] MEDS ORDERED: ASPIRIN325 PO (14:14)
[2017-03-08] MEDS ORDERED: PACERONE 200 M200 M1 PO (14:14)
[2017-03-08] MEDS ORDERED: COLACE100 MG PO (14:14)
[2017-03-08] MEDS ORDERED: ENOXAPARIN30 MG/0.1 SUBQ (14:14)
[2017-03-08] MEDS ORDERED: [UNRECOGNIZED DRUG - CODE] IV PUSH (14:14)
[2017-03-08] MEDS ORDERED: DUONEB 2.5-0.5 M3 ML INH (14:14)
[2017-03-08] MEDS ORDERED: TORSEMIDE20 MG PO (14:14)
[2017-03-08] MEDS ORDERED: MIRALAX17 GM PO (14:14)
[2017-03-08 15:15] VITALS: BP 79/45
[2017-03-08 16:00] VITALS: BP 79/45
[2017-03-09 10:10] LABS: ANTI-DNA SCREEN <1 IU/mL (0-9); ANTI-RNP 0.7 AI (0.0-0.9)
== END 2017-03-08 16:30 | DRG 235 ==
LOC: PRE → TBA 03-01 05:04 → ICU 03-01 05:04 → PRE 03-01 05:20 → ICU 03-01 14:52 → PRE 03-01 16:18 → 2N 03-07 16:05
PROVIDERS: Hospitalist; Internal Medicine Nephrology; Internal Medicine Pulmonary Disease; Nurse Practitioner; Thoracic Surgery (Cardiothoracic Vascular Surgery)
PROC: 03BC3ZZ Excision of Left Radial Artery, Percutaneous Approach (ICD-10-PCS; principal; 2017-03-01)
PROC: 5A1221Z Performance of Cardiac Output, Continuous (ICD-10-PCS; principal; 2017-03-01)
PROC: 02100Z9 Bypass Coronary Artery, One Artery from Left Internal Mammary, Open Approach (ICD-10-PCS; principal; 2017-03-01)
PROC: 02120AW Bypass Coronary Artery, Three Arteries from Aorta with Autologous Arterial Tissue, Open Approach (ICD-10-PCS; principal; 2017-03-01)
PROC: 30233R1 Transfusion of Nonautologous Platelets into Peripheral Vein, Percutaneous Approach (ICD-10-PCS; principal; 2017-03-01)
PROC: 021009W Bypass Coronary Artery, One Artery from Aorta with Autologous Venous Tissue, Open Approach (ICD-10-PCS; principal; 2017-03-01)
PROC: 06BQ4ZZ Excision of Left Saphenous Vein, Percutaneous Endoscopic Approach (ICD-10-PCS; principal; 2017-03-01)
PROC: 0W9930Z Drainage of Right Pleural Cavity with Drainage Device, Percutaneous Approach (ICD-10-PCS; 2017-03-02)
PROC: 30233N1 Transfusion of Nonautologous Red Blood Cells into Peripheral Vein, Percutaneous Approach (ICD-10-PCS; 2017-03-06)
DX: I25.10 Atherosclerotic heart disease of native coronary artery without angina pectoris (principal); N17.0 Acute kidney failure with tubular necrosis; J96.01 Acute respiratory failure with hypoxia; J98.11 Atelectasis; J93.9 Pneumothorax, unspecified; D62 Acute posthemorrhagic anemia; E27.40 Unspecified adrenocortical insufficiency; I12.9 Hypertensive chronic kidney disease with stage 1 through stage 4 chronic kidney disease, or unspecified chronic kidney disease; E11.22 Type 2 diabetes mellitus with diabetic chronic kidney disease; N18.9 Chronic kidney disease, unspecified; I95.9 Hypotension, unspecified; E11.51 Type 2 diabetes mellitus with diabetic peripheral angiopathy without gangrene; E78.00 Pure hypercholesterolemia, unspecified; R91.1 Solitary pulmonary nodule; M32.9 Systemic lupus erythematosus, unspecified; E11.42 Type 2 diabetes mellitus with diabetic polyneuropathy; F17.210 Nicotine dependence, cigarettes, uncomplicated; Z79.4 Long term (current) use of insulin; Z95.820 Peripheral vascular angioplasty status with implants and grafts; Z71.6 Tobacco abuse counseling; Z79.899 Other long term (current) drug therapy; Z88.8 Allergy status to other drugs, medicaments and biological substances; Z28.21 Immunization not carried out because of patient refusal
CPT/HCPCS: 10078; 10081; 47000; 47001; 47002; 47297; 48888; 50011; 50249; 50318; 50409; 50456; 50497; 50662; 50668; 51301; 52131; 52190; 52314; 53327; 53358; 54118; 56524; 56525; 56526; 56527; 56528; 56529; 56531; 56533; 56534; 56639; 56660; 57093; 62110; 62950; 64021; 64029; 64031; 65002; 65020; 65043; 65045; 65120; 83006

== ENCOUNTER 2017-03-08 12:57 | Inpatient (IN) | payer OTHER ==
[~2017-03-08] VITALS: Ht 177.8 cm; Wt 92.2 kg
--- NOTE | ~2017-03-08 | HC ---
[facility] [place] [address] CONSULTATION Name: ANGEL GODDARD Room #: 505-P [facility] IN ..#: [id number] Admission: 03/08/17 Attend Phys: Jacinto Montenegro MD Discharge: 03/18/17 Date of : 52 Report #: [id number] THIS REPORT FOR: //name// CC: Jacinto Montgomerymarcelina Mcclure DATE OF SERVICE: 03/16/2017 HISTORY OF PRESENT ILLNESS: This is a 66-year-old male patient who was evaluated by me for possibility of dementia as I understand. This patient gives a history that he was in [employer] at one time. He is retired. He underwent coronary artery bypass surgery. He had a pretty eventful course after that. He is recovering from that. He does not remember much about that postoperative period, but he thinks his memory otherwise is coming back. It looks like it was a pretty significant event after coronary artery bypass surgery. REVIEW OF SYSTEMS: Indicate that he did have acute hypoxemic respiratory failure. He does have chronic renal failure. He has a longstanding history of diabetes. Overall, he is becoming better. He denies any prior history of stroke. That was his relevant 14-point review of system. PAST MEDICAL HISTORY: Negative for any major stroke the best I can tell. FAMILY HISTORY: Negative for early age stroke. SOCIAL HISTORY: Retired from the [employer]. PHYSICAL EXAMINATION: Indicate he is alert. He is responsive. He can follow simple command. He is oriented. His memory may be somewhat diminished, but he can name the President and remembering the things which happened today. Cranial nerve examination is 2-12, looks mostly unremarkable, some time he gave an impression that he may have some hemianopsia, but I could not confirm that and if that finding is there, it is a rather minor finding. His neuromuscular examination was checked for motor, sensory, reflex and tone is unremarkable. He has no cerebellar sign. There is a carotid bruit, the best I can tell. He does not have much respiratory difficulty. His blood pressure is 136/92, pulse is 77. His temperature is 98.9. He is a pretty well-developed individual, who does not have any dysmorphic features of eyes, ears and face. His vision and hearing looks adequate . His ____ looks unremarkable. He does not have any thyroid mass. LABORATORY DATA: His lab indicate a slight anemia. His MRI indicate a stroke in the right posterior cerebral hemisphere, which I suspected embolic. IMPRESSION: 1. Cerebrovascular accident. [address] [address] CONSULTATION Name: ANGEL GODDARD Room #: 505-P [facility] IN [facility].#: [id number] Admission: 03/08/17 Attend Phys: Jacinto Montenegro MD Discharge: 03/18/17 Date of : 52 Report #: [id number] 2. Status post what appeared to be severe encephalopathy. 3. Status post coronary artery disease. 4. The patient is on aspirin. He is also on 40 mg of Lipitor. RECOMMENDATIONS: 1. We will get an MRA of the head and neck. 2. Cardiology is already following up this patient and we will leave it to them if they want to repeat an echocardiogram because the stroke may be embolic, but most likely happen in the perioperative period. 3. We will do some other blood workup as ordered. 4. Main management is going to be the management of the vascular risk factor until MRA shows something. Thank you very much for this referral. If you have any questions, please feel free to contact me. <ELECTRONICALLY SIGNED> By: Eric Grier MD 03/22/17 1704 1442 1753 Eric Grier MD /nt
--- NOTE | ~2017-03-08 | 2DMMODE ---
[facility] [place] [address] 2 D/M-MODE ECHOCARDIOGRAM Name: ANGEL GODDARD Room #: 505-P [facility] IN .R.#: [id number] Admission: 03/08/17 Attend Phys: Jacinto Montenegro, Discharge: Date of : 52 Date of Service: 03/17/17 1435 Report #: [id number] THIS REPORT FOR: //name// ADDENDUM APPROVED REPORT Study performed: 03/17/2017 10:00:14 EXAM: Comprehensive 2D, Doppler, and color-flow Echocardiogram Patient Location: Bedside Room #: 505 Status: routine BSA: 2.10 BP: 109/76 mmHg Other Information Study Quality: Adequate Indications Diabetes CAD Hypertension/HDD Possible CVA Echo Enhancing Agent Indication: Rule out Shunt Agent(s) / Amount(s) Used: Agitated Saline 6 cc 2D Dimensions RVDd: 31.00 mm LVEF(%): 80.22 (>50%) IVSd: 14.60 (7-11mm) LVOT Diam: 20.43 (18-24mm) LVDd: 41.06 mm PWd: 12.98 (7-11mm) Ascending Ao: 30.60 (22-36mm) LVDs: 21.18 (25-40mm) Aortic Root: 35.93 mm IVC: 9.00 mm Kwok's LVEF: 80.22 % Volumes Left Atrial Volume (Systole) Single Plane 4CH: 28.89 mL Single Plane 2CH: 27.02 mL LA ESV Index: 15.00 mL/m2 Aortic Valve AoV Peak Bruce.: 1.59 m/s [facility] [address] [place] [address] 2 D/M-MODE ECHOCARDIOGRAM Name: MIRANDABRADENANGEL SCHNEIDER Ulysses Room #: 505-P [facility] IN [facility]#: [id number] Admission: 03/08/17 Attend Phys: Jacinto Montenegro, Discharge: Date of : 52 Date of Service: 03/17/17 1435 Report #: [id number] AO Peak Gr.: 10.10 mmHg LVOT Max P.60 mmHg LVOT Max V: 1.28 m/s ELI Vmax: 2.65 cm2 Mitral Valve E/A Ratio: 0.8 MV Decel. Time: 290.99 ms MV E Max Bruce.: 0.78 m/s MV A Bruce.: 0.99 m/s MV PHT: 84.39 ms IVRT: 141.87 ms Pulmonary Valve PV Peak Bruce.: 1.16 m/s PV Peak Gr.: 5.41 mmHg Pulmonary Vein P Vein S: 0.78 m/s P Vein A: 0.26 m/s P Vein D: 0.71 m/s P Vein A Dur.: 100.3 msec P Vein S/D Ratio: 1.10 Tricuspid Valve TR Peak Bruce.: 2.72 m/s RAP Estimate: 5.00 mmHg TR Peak Gr.: 29.52 mmHg Left Ventricle The left ventricle is normal size. Regional wall motion is not well visualized but grossly normal. Mild concentric left ventricular hypertrophy. The left ventricular systolic function is normal. The left ventricular ejection fraction is within the normal range. LVEF is 60-65%. Mild diastolic dysfunction is present (impaired relaxation pattern). Right Ventricle The right ventricle is normal size. The right ventricular systolic function is normal. Atria The left atrium size is normal. Injection of bubbles documented no interatrial shunt. The right atrium size is normal. Aortic Valve The aortic valve is normal in structure. No aortic regurgitation is present. There is no aortic valvular stenosis. Mitral Valve The mitral valve is normal in structure. There is no mitral valve [facility] [address] [place] [address] 2 D/M-MODE ECHOCARDIOGRAM Name: ANGEL GODDARD Room #: 505-P [facility] IN [facility]#: [id number] Admission: 03/08/17 Attend Phys: Jacinto Montenegro, Discharge: Date of : 52 Date of Service: 03/17/17 1435 Report #: [id number] regurgitation noted. No evidence of mitral valve stenosis. Tricuspid Valve The tricuspid valve is normal in structure. There is trace tricuspid regurgitation. The right atrial pressure is estimated at 5 mmHg. PAP is estimated at 35 mmHg. Pulmonic Valve The pulmonary valve is normal in structure. Mild pulmonic regurgitation. Great Vessels The aortic root is normal in size. IVC is normal in size and collapses >50% with inspiration. Pericardium There is no pericardial effusion. Moderate pleural effusion. <Conclusion> The left ventricular systolic function is normal. Regional wall motion is not well visualized but grossly normal. LVEF is 60-65%. Mild diastolic dysfunction is present (impaired relaxation pattern). The aortic valve is normal in structure. No aortic valvular stenosis or insufficiency. The mitral valve is normal in structure. No mitral valve regurgitation noted. Pulmonary artery pressure of 35mmHg There is no pericardial effusion. The left ventricle is normal size. Mild concentric left ventricular hypertrophy. The left ventricular systolic function is normal. The left ventricular ejection fraction is within the normal range. Mild diastolic dysfunction is present (impaired relaxation pattern). The right ventricle is normal size. The left atrium size is normal. The aortic valve is normal in structure. There is no mitral valve regurgitation noted. The mitral valve is normal in structure. There is trace tricuspid regurgitation. The right atrial pressure is estimated at 5 mmHg. PAP is estimated at 35 mmHg. IVC is normal in size and collapses >50% with inspiration. [facility] [address] [place] [address] 2 D/M-MODE ECHOCARDIOGRAM Name: ANGEL GODDARD Room #: 505-P [facility] IN M.R.#: [id number] Admission: 03/08/17 Attend Phys: Jacinto Montenegro, Discharge: Date of : 52 Date of Service: 03/17/17 1435 Report #: [id number] There is no pericardial effusion. bubble study negative <ELECTRONICALLY SIGNED> By: Oliver Rangel MD, FACC 03/17/17 1435 1435 1435 Oliver Ranegl MD, FACC /INF
--- NOTE | ~2017-03-08 | H ---
Formerly [facility] [place] [address] [place] [address] HISTORY AND PHYSICAL Name: ANGEL GODDARD Room #: 505-P ADM IN M.R.#: [id number] Admission: 03/08/17 Attend Phys: Jacinto Montenegro MD Discharge: Date of : 52 Report #: [id number] THIS REPORT FOR: //name// CC: Jacinto Krishnamurthyore Mcclure DATE OF SERVICE: 03/08/2017 HISTORY AND PHYSICAL/POST-ADMISSION PHYSICIAN EVALUATION HISTORY OF PRESENT ILLNESS: This is a 66-year-old white male with history of coronary artery disease who underwent coronary artery bypass grafting x 5. His course was complicated by acute hypoxic respiratory failure, prolonged ICU stay, atrial fibrillation with rapid ventricular rate, acute renal insufficiency, diabetes mellitus. He has been followed closely by Cardiology, Pulmonary Medicine, Nephrology as well as Cardiovascular Surgery and Internal Medicine. He has medical complexity with generalized debilitation and is on 3 liters at rest with 6 liters with activity. He has been admitted for acute in-hospital inpatient rehabilitation. PAST MEDICAL HISTORY: Includes peripheral vascular disease with an iliac arterial procedure in both legs, history of longstanding diabetes mellitus, hypertension, and hypercholesterolemia. PAST SURGICAL HISTORY: Includes a prior hernia repair. MEDICATIONS: Please see the full medication listing. SOCIAL HISTORY: One pack per day, uses some alcohol, lives by himself. ALLERGIES: NOTED TO ALCON. SOCIAL HISTORY: Lives in a house alone, three steps in. He has adult kids that live locally. He did not utilize adaptive devices premorbidly. REVIEW OF SYSTEMS: No complaints of chest pain, shortness of breath or abdominal discomfort. He has the decreased sensation with his distal lower extremities and has an apparent diagnosis of a peripheral neuropathy. PHYSICAL EXAMINATION: GENERAL: A 66-year-old white male in no obvious distress. VITAL SIGNS: Temperature 97.3, pulse 64, respirations 20, blood pressure 101/69. The patient is alert. HEENT: Appeared to be benign. NEUROLOGIC: Cranial nerves are grossly intact. Facies are symmetric. Nasal prong O2 is in place [address] [address] HISTORY AND PHYSICAL Name: ANGEL GODDARD Room #: 505-P [facility] IN M.R.#: [id number] Admission: 03/08/17 Attend Phys: Jacinto Montenegro MD Discharge: Date of : 52 Report #: [id number] SKIN: Midline sternal incision appears to be intact. CHEST: Sounded clear to auscultation. CARDIOVASCULAR: Sounded regular rate. ABDOMEN: Bowel sounds positive, nontender. GENITOURINARY AND RECTAL: Deferred. EXTREMITIES: He has functional range of motion of both upper extremities with strength grade 4-/5. DTRs are trace to 1. Lower extremities, no focal calf swelling, trace distal lower extremity edema, functional range of motion with strength grade 4-/5. He has decreased sensation in stocking distribution with decreased proprioception of large toe on left. He is needing assistance with basic functional mobility skills and has been mod assist with transfers, min assist with short distance ambulation. ASSESSMENT: A 66-year-old white male with the following problem list: 1. Medical complexity with generalized debilitation. 2. Acute hypoxic respiratory failure with atelectasis and effusion, continuing on nasal prong O2. 3. Pulmonary nodule, right upper lobe, question atelectasis. 4. Coronary artery disease with coronary artery bypass grafting x 5 on 03/01/2017. 5. Acute renal insufficiency. 6. Diabetic neuropathy. 7. Question of systemic lupus erythematous. PLAN: To hold the Plaquenil and recheck serologies. The patient is admitted for acute in-hospital inpatient rehabilitation. From a post-admission physician evaluation perspective, there are no relevant changes since the preadmission screening. Please see the above review of prior and current medical and functional conditions and comorbidities. Please see the patient's previous and current functional status. As far as risk of complications, the patient has multiple medical comorbidities as noted above. The initial plan of care involves the interdisciplinary acute inpatient rehabilitation program with the goal of maximizing the patient's functional independence, so that the patient can hopefully return back to his prior living situation. Measurable functional goals would be for the patient to become modified independent at least at the walker level with prognosis reasonably good and estimated length of stay probably at least 2 weeks pending progress. Potential barriers would include his multiple medical comorbidities and decreased functional status. The patient meets diagnostic criteria for an acute in-hospital inpatient rehabilitation stay. He meets medical necessity criteria and we will have the multiple vocational rehab consultant physicians continue to follow while he is on rehab. He does [address] [address] HISTORY AND PHYSICAL Name: RUPESHANGEL Ulysses Room #: 505-P ADM IN M.R.#: [id number] Admission: 03/08/17 Attend Phys: Jacinto Montenegro MD Discharge: Date of : 52 Report #: [id number] have the tolerance for therapies and has appropriate discharge goals back to the home setting. <ELECTRONICALLY SIGNED> By: Jacinto Montenegro MD 03/15/17 1105 1018 1116 Jacinto Montenegro MD /[facility]
--- NOTE | ~2017-03-08 | HC ---
[facility] [place] [address] [place] [address] CONSULTATION Name: ANGEL GODDARD Room #: 505-P ADM IN M.R.#: [id number] Admission: 03/08/17 Attend Phys: Jacinto Montenegro MD Discharge: Date of : 52 Report #: [id number] THIS REPORT FOR: //name// CC: Jacinto Montenegro Rufino Mcclure DATE OF SERVICE: 03/13/2017 NEUROBEHAVIORAL STATUS EXAM AGE: 66. ATTENDING PHYSICIAN: Jacinto Montenegro MD WAY INSPECTOR: Ger Rasmussen, PhD CLINICAL PRESENTATION: The patient is a 66-year-old male admitted to [facility] for comprehensive inpatient rehabilitation program to improve functional mobility, activities of daily living and self-care and mental status secondary to deficits from medical complexity and generalized debilitation. His diagnoses include acute hypoxic respiratory failure with atelectasis and effusion, pulmonary nodule at the right upper lobe, coronary artery disease with coronary artery bypass grafting times 5 on 03/01/2017, acute renal insufficiency, diabetic neuropathy, and a question of a systemic lupus erythematosus. A complete description of his medical condition and history can be found in his medical record. Neuropsychological consultation was requested to provide assistance in the assessment of cognitive and emotional status and to provide recommendations and services. Prior to this most recent admission, the patient was living independently in his own home. He reports being independent with instrumental activities of daily living. The patient reports having obtained a master's degree. College degree from [employer] and a master's degree in math from [employer] . 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 He has no children. His about 15 years ago. TECHNIQUES UTILIZED: Clinical interview, review of medical records, staff consultation and behavioral observation, mini mental status exam 2 standard version, clock drawing. EXAMINATION FINDINGS: The patient was alert and cooperative with the assessment. He accurately described events surrounding his admission. He does not report auditory or visual hallucinations. However, he does have decreased verbal fluency and difficulty with word finding. His insight is very poor and the patient does not recognize deficits in cognition. Anxiety and depression is suggested. His mood is irritable. He reports having much pain in an IV site as [facility] [address] [place] [address] CONSULTATION Name: ANGEL GODDARD Room #: 505-P [facility] IN [facility].#: [id number] Admission: 03/08/17 Attend Phys: Jacinto Montenegro MD Discharge: Date of : 52 Report #: [id number] a result of potassium infusion. Difficulty with sleep is reported. The patient has decreased insight about the purpose of his treatment and does not recognize cognitive deficits, which places him at a large safety risk. He does not report difficulty with word finding or memory. However, as indicated he lacks insight into his deficits in cognitive functioning. Verbal fluency deficits were noted during the interview. His performance on the MMSE 2 brief version was extremely low with a raw score of 11 of 16. He was 3/3 for initial registration, 4/5 for orientation to time and 4/[address] However, he is 0/3 for immediate recall of 3 items after a brief time delay and distraction. His performance on the MMSE 2 standard version was extremely low with a raw score of 20 of 30. There is a T score of 17. He was 1/5 for serial sevens, 2/2 for naming, 1/1 for being able to read and follow single command. Auditory comprehension was 3 of 3. He was able to write a sentence. However, the sentence was concrete and encouragement was necessary to increase elaboration. The patient was unable to copy a simple geometric design. He also was unable to draw a clock and set the hands at a designated time. He was unable to place the numbers within the clock and spatial disorganization is suggested. DIAGNOSTIC IMPRESSION: Delirium, mixed level of activity, acute. Neurocognitive disorder, unspecified, with decreased insight and irritability, extent to be determined, severe at this time. RECOMMENDATIONS: The patient requires 24-hour assistance at this time with the management of medication and nutrition. Driving is inappropriate. He lacks insight into cognitive deficits, which places him at an increase safety risk. Verbal praise and complements about participation in therapy. However, he and his family will need education regarding his limitations in order to improve his level of awareness of deficits. He may benefit from short term use of pain medication to assist in the management of pain in his arm from the infusion. A followup neuropsych assessment will be of benefit to clarify the severity of cognitive deficits upon his return to the community. Thank you very much for allowing me to provide the consultation on this patient. <ELECTRONICALLY SIGNED> By: Ger Rasmussen, PhD 03/13/17 1507 [id number] 1423 Ger Rasmussen, PhD /nt
--- NOTE | ~2017-03-08 | PLAN ---
[facility] [place] [address] REHAB UNIT PLAN OF CARE Name: ANGEL GODDARD Room #: 505-P ADM IN M.R.#: [id number] Admission: 03/08/17 Attend Phys: Jacinto Montenegro MD Discharge: Date of : 52 Report #: [id number] THIS REPORT FOR: //name// CC: Jacinto Mcclure DATE OF SERVICE: 03/11/2017 SUBJECTIVE: The patient is seen back today in followup. He is in no distress. Sutures are removed from his sternal incision. He is on nasal prong O2, 2 liters, although we are trying to taper him. No focal calf swelling. Transfers are contact guard with gait 150 feet, contact guard with a front-wheeled walker. Occupational therapy, upper body dressing, supervision with lower body dressing, min assist. ASSESSMENT: 1. Medical complexity with generalized debilitation. 2. Acute hypoxic respiratory failure with atelectasis and effusions and trying to taper. 3. Pulmonary nodule, right upper lobe, question atelectasis. 4. Coronary artery disease with coronary artery bypass grafting x 5, 03/01/2017. 5. Acute renal insufficiency. 6. Diabetic neuropathy. 7. Question of systemic lupus erythematosus. PLAN: The overall plan of care is based on the preadmission screen, post-admission physician evaluation and information garnered from therapy assessments. 1. Estimated length of stay is probably fairly short around 5-7 days. 2. Medical prognosis is reasonably good. 3. Anticipated interventions includes interdisciplinary acute inpatient rehabilitation program. PT and OT will be involved along with rehab nursing to work on medication management, skin care issues, bowel and bladder issues and education. We will have the interdisciplinary team involved as well as the multiple inbound sales consultant physicians that are following. 4. Anticipated functional outcomes would be for the patient to become modified independent at least at the walker level. 5. Discharge destination would be back to the home setting. He does live alone, but has adult children that live locally. 6. Expected therapy by discipline includes PT and OT 1 to 1-1/2 hours per day [address] [address] REHAB UNIT PLAN OF CARE Name: ANGEL GODDARD Room #: 505-P [facility] IN ..#: [id number] Admission: 03/08/17 Attend Phys: Jacinto Montenegro MD Discharge: Date of : 52 Report #: [id number] each five days a week throughout the duration of the acute inpatient rehabilitation stay. <ELECTRONICALLY SIGNED> By: Jacinto Montenegro MD 03/15/17 1108 0934 0019 Jacinto Montenegro MD /[facility]
[2017-03-08] MEDS ORDERED: HYDROCODONE-AP1 EAC6 PO (14:10)
[2017-03-08] MEDS ORDERED: [UNRECOGNIZED DRUG - CODE] IV PUSH (14:14)
[2017-03-08] MEDS ORDERED: FAMOTIDINE 10 M10 MG PO (14:14)
[2017-03-08] MEDS ORDERED: MIRALAX17 GM PO (14:14)
[2017-03-08] MEDS ORDERED: PACERONE 200 M200 M1 PO (14:14)
[2017-03-08] MEDS ORDERED: ENOXAPARIN30 MG/0.1 SUBQ (14:14)
[2017-03-08] MEDS ORDERED: COLACE100 MG PO (14:14)
[2017-03-08] MEDS ORDERED: FENOFIBRATE54 MG PO (14:14)
[2017-03-08] MEDS ORDERED: DUONEB 2.5-0.5 M3 ML INH (14:14)
[2017-03-08] MEDS ORDERED: TORSEMIDE20 MG PO (14:14)
[2017-03-08] MEDS ORDERED: ASPIRIN325 PO (14:14)
[2017-03-08 17:00] VITALS: BP 110/64
[2017-03-08 20:06] VITALS: BP 101/69
[2017-03-09 06:34] LABS: CALCIUM 8.6 mg/dL (8.5-10.1); CREATININE 2.2 mg/dL (0.7-1.3); PHOSPHORUS 3.8 mg/dL (2.5-4.9); POTASSIUM 3.6 mmol/L (3.5-5.1)
[2017-03-09 07:30] VITALS: BP 153/81
[2017-03-09 19:48] VITALS: BP 152/74
[2017-03-10 07:03] LABS: HEMATOCRIT 35.1 % (42.0-52.0); HEMOGLOBIN 11.5 gm/dL (14.0-18.0); MCH 30.9 pg (26.0-34.0); MCHC 32.7 g/dL (28.0-37.0); MCV 94.3 fL (80.0-100.0); PLATELET COUNT 149 thou/uL (150-400); RBC 3.73 mil/uL (4.50-6.00); RDW 16.9 % (10.5-14.5); WBC 11.5 thou/uL (4.0-11.0)
[2017-03-10 07:07] LABS: CREATININE 1.7 mg/dL (0.7-1.3); MAGNESIUM 2.2 mg/dL (1.8-2.4); POTASSIUM 3.3 mmol/L (3.5-5.1)
[2017-03-10 07:10] LABS: MANUAL DIFF YES
[2017-03-10 08:00] VITALS: BP 146/87
[2017-03-10 08:10] LABS: ABSOLUTE NEUTROPHILS 9.8 thou/uL (1.4-8.2); ANISOCYTOSIS 1+; POLYCHROMASIA OCCASIONAL; TOTAL CELL COUNT 100
[2017-03-10 20:01] VITALS: BP 132/78
[2017-03-11 03:50] LABS: ALBUMIN 2.8 g/dL (3.4-5.0); CALCIUM 8.6 mg/dL (8.5-10.1); CREATININE 1.8 mg/dL (0.7-1.3); PHOSPHORUS 3.1 mg/dL (2.5-4.9); POTASSIUM 3.5 mmol/L (3.5-5.1)
[2017-03-11 08:10] VITALS: BP 125/84
[2017-03-11 21:34] VITALS: BP 140/80
[2017-03-12 07:59] LABS: ALBUMIN 3.1 g/dL (3.4-5.0); CALCIUM 8.9 mg/dL (8.5-10.1); CREATININE 1.6 mg/dL (0.7-1.3); PHOSPHORUS 2.9 mg/dL (2.5-4.9); POTASSIUM 3.2 mmol/L (3.5-5.1)
[2017-03-12 08:00] VITALS: BP 157/72
[2017-03-12 20:00] VITALS: BP 137/84
[2017-03-13 05:44] LABS: ALBUMIN 2.7 g/dL (3.4-5.0); CALCIUM 8.7 mg/dL (8.5-10.1); CREATININE 1.5 mg/dL (0.7-1.3); PHOSPHORUS 2.5 mg/dL (2.5-4.9)
[2017-03-13 05:46] LABS: POTASSIUM 2.9 mmol/L (3.5-5.1)
[2017-03-13 08:05] VITALS: BP 131/66
[2017-03-13 19:49] VITALS: BP 115/66
[2017-03-14 06:21] LABS: ALBUMIN 2.8 g/dL (3.4-5.0); CALCIUM 8.9 mg/dL (8.5-10.1); CREATININE 1.4 mg/dL (0.7-1.3); PHOSPHORUS 2.5 mg/dL (2.5-4.9); POTASSIUM 3.6 mmol/L (3.5-5.1)
[2017-03-14 08:00] VITALS: BP 138/96
[2017-03-14 20:17] VITALS: BP 137/83
[2017-03-15 06:57] LABS: ABSOLUTE NEUTROPHILS 7.9 thou/uL (1.4-8.2); BASOPHILS 0.3 % (0.0-2.0); EOSINOPHILS 0.4 % (0.0-3.0); HEMATOCRIT 36.7 % (42.0-52.0); HEMOGLOBIN 12.2 gm/dL (14.0-18.0); MCH 31.3 pg (26.0-34.0); MCHC 33.3 g/dL (28.0-37.0); MCV 94.2 fL (80.0-100.0); MONOCYTES 6.7 % (1.0-8.0); PLATELET COUNT 128 thou/uL (150-400); POLYS 81.6 % (36.0-66.0); RBC 3.89 mil/uL (4.50-6.00); RDW 15.7 % (10.5-14.5); WBC 9.6 thou/uL (4.0-11.0)
[2017-03-15 07:00] LABS: MANUAL DIFF NO
[2017-03-15 07:12] LABS: ALBUMIN 2.7 g/dL (3.4-5.0); CALCIUM 8.7 mg/dL (8.5-10.1); CREATININE 1.6 mg/dL (0.7-1.3); MAGNESIUM 1.7 mg/dL (1.8-2.4); POTASSIUM 3.5 mmol/L (3.5-5.1); TOTAL BILIRUBIN 1.1 mg/dL (<0.1-1.0); TOTAL PROTEIN 6.9 g/dL (6.4-8.2)
[2017-03-15 08:01] VITALS: BP 146/49
[2017-03-15 20:05] VITALS: BP 122/74
[2017-03-16 07:30] VITALS: BP 136/92
[2017-03-16 20:03] VITALS: BP 109/76
[2017-03-17 04:42] LABS: ALBUMIN 2.7 g/dL (3.4-5.0); CALCIUM 8.8 mg/dL (8.5-10.1); CREATININE 1.8 mg/dL (0.7-1.3); PHOSPHORUS 4.1 mg/dL (2.5-4.9); POTASSIUM 3.3 mmol/L (3.5-5.1)
[2017-03-17 07:30] VITALS: BP 105/68
[2017-03-17 19:45] VITALS: BP 122/75
[2017-03-18 06:35] LABS: ABSOLUTE NEUTROPHILS 3.8 thou/uL (1.4-8.2); BASOPHILS 0.3 % (0.0-2.0); EOSINOPHILS 0.8 % (0.0-3.0); HEMATOCRIT 34.8 % (42.0-52.0); HEMOGLOBIN 11.5 gm/dL (14.0-18.0); LYMPHOCYTES 17.9 % (24.0-44.0); MCH 31.2 pg (26.0-34.0); MCHC 33.1 g/dL (28.0-37.0); MCV 94.2 fL (80.0-100.0); MONOCYTES 6.6 % (1.0-8.0); PLATELET COUNT 98 thou/uL (150-400); POLYS 74.4 % (36.0-66.0); RBC 3.69 mil/uL (4.50-6.00); RDW 15.5 % (10.5-14.5); WBC 5.1 thou/uL (4.0-11.0)
[2017-03-18 06:36] LABS: MANUAL DIFF NO
[2017-03-18 06:44] LABS: CALCIUM 8.9 mg/dL (8.5-10.1); CREATININE 1.6 mg/dL (0.7-1.3); MAGNESIUM 1.8 mg/dL (1.8-2.4); POTASSIUM 3.9 mmol/L (3.5-5.1)
[2017-03-18 07:41] VITALS: BP 124/67
[2017-03-18 11:59] VITALS: BP 129/67
[2017-03-18] MEDS ORDERED: TORSEMIDE20 MG PO (12:20)
[2017-03-18] MEDS ORDERED: PACERONE 200 M200 M1 PO (12:20)
[2017-03-18] MEDS ORDERED: LANTUS100 UNIT/M SUBQ (12:20)
[2017-03-18] MEDS ORDERED: DUONEB 2.5-0.5 M3 ML INH (12:20)
[2017-03-18] MEDS ORDERED: FLOMAX0.4 MG PO (12:20)
[2017-03-18] MEDS ORDERED: POTASSIUM CHLO20 MEQ PO (12:20)
[2017-03-18] MEDS ORDERED: BYSTOLIC 5 MG5 M1 PO (12:20)
[2017-03-18] MEDS ORDERED: FENOFIBRATE54 MG PO (12:20)
== END 2017-03-18 17:59 | disposition home health service (06) | DRG 64 ==
PROVIDERS: Hospitalist; Internal Medicine Nephrology; Nurse Practitioner; Physical Medicine & Rehabilitation
DX: I63.9 Cerebral infarction, unspecified (principal); J96.21 Acute and chronic respiratory failure with hypoxia; G93.40 Encephalopathy, unspecified; J98.11 Atelectasis; D62 Acute posthemorrhagic anemia; N17.9 Acute kidney failure, unspecified; R53.81 Other malaise; E11.40 Type 2 diabetes mellitus with diabetic neuropathy, unspecified; I25.10 Atherosclerotic heart disease of native coronary artery without angina pectoris; R41.9 Unspecified symptoms and signs involving cognitive functions and awareness; R41.0 Disorientation, unspecified; N18.9 Chronic kidney disease, unspecified; E11.22 Type 2 diabetes mellitus with diabetic chronic kidney disease; I12.9 Hypertensive chronic kidney disease with stage 1 through stage 4 chronic kidney disease, or unspecified chronic kidney disease; E78.00 Pure hypercholesterolemia, unspecified; E11.51 Type 2 diabetes mellitus with diabetic peripheral angiopathy without gangrene; F17.210 Nicotine dependence, cigarettes, uncomplicated; Z60.2 Problems related to living alone; E78.5 Hyperlipidemia, unspecified; E87.6 Hypokalemia; E83.42 Hypomagnesemia; Z95.1 Presence of aortocoronary bypass graft; Z28.21 Immunization not carried out because of patient refusal
CPT/HCPCS: 10112

== ENCOUNTER 2017-04-07 06:19 | Inpatient (IN) | payer OTHER ==
[~2017-04-07] VITALS: Ht 10 cm; Wt 96.3 kg
[2017-04-07] VITALS (8 sets, daily range): BP systolic 101–143; BP diastolic 60–92
--- NOTE | ~2017-04-07 | HC ---
[facility] [place] [address] [place] [address] CONSULTATION Name: ANGEL GODDARD Room #: 245-P ADM IN M.R.#: [id number] Admission: 04/07/17 Attend Phys: Leonid Hoffman DO Discharge: Date of : 52 Report #: [id number] THIS REPORT FOR: //name// CC: Leonid Hoffman Rufino Mcclure DATE OF SERVICE: 04/16/2017 CARDIOLOGY CONSULTATION HISTORY OF PRESENT ILLNESS: This is a patient who is known to me who underwent prior bypass surgery. His prior iliac interventions and subsequently 3-vessel bypass with a GUTHRIE to LAD, a radial Y to diagonal, a radial to a ramus and then to an OM and an SVG to the PDA, 5 total vessels. He has had a very extreme audi course, this was back on 03/01/2017, been in and out of the hospital, most recently was readmitted with large pleural effusions, has had a chest tube in to drain. He has been failing to thrive and became acidotic tonight with some hypotension. The EKG had some nonspecific changes and remained sinus rhythm with a right bundle, first-degree AV block. He was hypotensive and a stat echo was called. There are some areas of pericardial effusion, but there does not appear to be right-sided collapse, although there is some respiratory variation. He is not tachycardic and had a bradycardic episode, a vagal episode requiring some transient CPR and subsequently has dumped 700 mL into his chest tube from his pleural space and now hemodynamically markedly improved with the pressure now 114/68 with some low dose Levophed and a pulse of 68. PAST MEDICAL HISTORY: Positive for the bypass, hypertension, hypercholesterolemia, peripheral vascular disease with iliac stents placed in early February, diabetes, tobacco use. ALLERGIES: AVANDIA. SOCIAL HISTORY: He was a prior smoker. Moderate alcohol. He is accompanied by a brother. I think he lives alone and independently. HOME MEDICATIONS: Atorvastatin, fenofibrate, Flexeril, gabapentin, hydrocodone, insulin, meloxicam, nystatin, tamsulosin, Zanaflex. CURRENT MEDICATIONS: Bystolic 5, morphine, enoxaparin 40, fenofibrate 54, Celexa, amiodarone 200, Pepcid, aspirin, atorvastatin, hydrocodone, insulin, tamsulosin ____. PHYSICAL EXAMINATION: GENERAL: He does respond, although extremely sleepy. VITAL SIGNS: Blood pressure is 114/60, his pulse is 70. HEENT: Eyes, no xanthelasmas. Pharynx is clear. [address] [address] CONSULTATION Name: ANGEL GODDARD Room #: 245-P [facility] IN M.R.#: [id number] Admission: 04/07/17 Attend Phys: Leonid Hoffman DO Discharge: Date of : 52 Report #: [id number] SKIN: There are some dry mucous membranes. He will open his eyes. NECK: Shows preserved upstrokes. LUNGS: Markedly diminished in the bases, prolonged expiratory phase. CARDIOVASCULAR: Distant heart tones, S1, S2. ABDOMEN: Slightly protuberant, nontender. EXTREMITIES: Trace edema. His pulses diminished. NEUROLOGIC: Somewhat responsive, cooperative and seems to be moving all extremities. ASSESSMENT: 1. Hypotension, improved after transient CPR and 700 mL into his chest from his pleural space. 2. Coronary artery disease with coronary artery bypass graft as stated above 03/01/2017. 3. Pericardial effusion, although not circumferential and does not appear to be having right-sided chamber collapse consistent with tamponade. 4. Diabetes. 5. Hypertension. 6. Hypercholesterolemia, by history. 7. Acidosis. 8. Acute on chronic kidney disease. RECOMMENDATIONS AND PLAN: We will continue with fluids and Levophed. We will start to wean. Creatinine now 2.9, H and H are 10.6 and 33, white count 8.3. Chest x-ray showed no significant changes, left side chest tube was in place. We will continue to follow with you. He is hemodynamically stabilized after this to some extent. I have discussed with Cardiothoracic Surgery, still considering possibly a video-assisted thoracotomy or some sort of exploration here, although I do not believe we are dealing with tamponade physiology here and certainly not indicated at this point. It seems more likely that he would benefit from a window if we believe that is occurring pericardial window. Discussed above with Cardiovascular Surgery, we will also reevaluate in the a.m. <ELECTRONICALLY SIGNED> By: Oliver Rangel MD, FACC 04/28/17 1556 2301 0842 Oliver Rangel MD, FACC /nt
--- NOTE | ~2017-04-07 | HC ---
[facility] [place] [address] [place] [address] CONSULTATION Name: ANGEL GODDARD Room #: 246-P ADM IN M.R.#: [id number] Admission: 04/07/17 Attend Phys: Leonid Hoffman DO Discharge: Date of : 52 Report #: [id number] THIS REPORT FOR: //name// CC: Leonid Mcclure REASON FOR CONSULTATION: I was asked to evaluate concerning postoperative fever. HISTORY OF PRESENT ILLNESS: The patient is a 66-year-old with underlying coronary artery disease. In February, he underwent coronary bypass grafting. Postoperatively, he had issues with recurring left pleural effusion. He has had a chest tube placed now a pigtail catheter in the left chest. He has had several falls and actually he fractured his right ankle. He has had two recorded codes most recently 48 hours ago. He required CPR. Concern regarding his chest tube malfunction. Imaging studies did show a large pericardial effusion with tamponade. He required a subxiphoid pericardial window yesterday. Postoperatively, he developed a fever of 102.5 degrees axillary. Hemodynamically, he has remained stable. He has a mediastinal chest tube in place in the left chest pigtail catheter. He has had a cough with minimal sputum production. No nausea, vomiting or diarrhea. Poor oral intake. Indwelling Aguila catheter. The patient is now out of bed. ALLERGIES: AVANDIA. MEDICATIONS: As noted on his MAR, which was reviewed. He did receive vancomycin perioperatively. PAST MEDICAL HISTORY: Coronary artery disease, hypertension, chronic kidney disease, hyperlipidemia, diabetes, adrenal insufficiency, bilateral carotid disease, status post stent, BPH, neck surgery, herniorrhaphy and CABG on 03/01/2017. FAMILY HISTORY: Noncontributory. SOCIAL HISTORY: Smoker of tobacco. No significant alcohol intake. PHYSICAL EXAMINATION: VITAL SIGNS: Afebrile, hemodynamically stable. He is on 2 liters of oxygen per nasal cannula. CHEST: Sternotomy unremarkable. Chest tubes unremarkable. LUNGS: Decreased breath sounds to left base posteriorly. HEART: Regular without murmur. He had some crepitance to the left anterior lateral chest. ABDOMEN: Soft and nontender. EXTREMITIES: Unremarkable. Left subclavian catheter unremarkable. [facility] [address] [place] [address] CONSULTATION Name: ANGEL GODDARD Room #: 246-P [facility] IN [facility].#: [id number] Admission: 04/07/17 Attend Phys: Leonid Hoffman DO Discharge: Date of : 52 Report #: [id number] LABORATORY STUDIES: Sodium 141, potassium 4.3, bicarbonate 22 and creatinine 1.3. Liver function tests are normal. Albumin 1.7. Hemoglobin 9.5, white count 7.2 and platelet count 187,000. MRSA PCR is pending. Cortisol random is pending. Urinalysis is unremarkable. ABGs this morning showed a lactate of 1.2, pO2 of 71, pCO2 of 35, pH 7.4. Unclear how much oxygen he was on at the time. Blood and urine cultures are pending. Chest x-ray: Cardiomegaly. Lower lobe atelectasis versus pneumonia. Chest tube is unchanged in position. IMPRESSION: Postoperative fever persists until today, low grade. May well be related to chest tube placement and atelectasis. His white count remains normal. The patient appears stable. PLAN: Recommend continue observation off antibiotics with pulmonary hygiene reinforced with the patient. Obtain sputum culture if possible. Nursing staff will call if fever returns. <ELECTRONICALLY SIGNED> By: Kirk Riley MD 04/19/17 1655 1807 0902 Kirk Riley MD /nt
--- NOTE | ~2017-04-07 | EKG ---
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 : 1950 Requested By: Eva Pace Order Number: [id number] MD: Alcon Womack Measurements Intervals [place] Rate: 69 P: [place]: QRS: 64 QRSD: 152 T: -30 QT: 494 QTc: 530 Interpretive Statements Atrial flutter with predominant 4:1 AV block Right bundle branch block Possible anterolateral infarct, age indeterminate Compared to ECG 04/26/2017 06:44:55 No significant changes Electronically Signed On 04-27-2017 8:55:31 BATTERBOARD SETTER by Alcon Womack [email or web address] <ELECTRONICALLY SIGNED> By: Alcon Womack MD, [facility] 04/27/17 0855 0635 Alcon Womack MD, [facility] /EPI
--- NOTE | ~2017-04-07 | EKG ---
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 : 1950 Requested By: Moriah Brewer Order Number: [id number] MD: Alcon Womack Measurements Intervals [place] Rate: 70 P: 95 [place]: 212 QRS: 86 QRSD: 160 T: -15 QT: 475 QTc: 513 Interpretive Statements Sinus rhythm Borderline prolonged [place] interval Right bundle branch block Compared to ECG 04/07/2017 06:23:21 No significant changes Electronically Signed On 04-17-2017 14:23:33 BUSINESS AND FINANCIAL COUNSEL by Alcon Womack [email or web address] <ELECTRONICALLY SIGNED> By: Alcon Womack MD, [facility] 04/17/17 1423 37 37 Alcon Womack MD, [facility] /EPI
--- NOTE | ~2017-04-07 | EKG ---
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 : 1950 Requested By: Eva Pace Order Number: [id number] MD: Alcon Womack Measurements Intervals [place] Rate: 68 P: 100 UT: 197 QRS: 71 QRSD: 141 T: 216 QT: 470 QTc: 500 Interpretive Statements Sinus rhythm Nonspecific intraventricular conduction delay Anterolateral infarct, age indeterminate Compared to ECG 05/01/2017 07:48:41 Anterolateral Q waves are now present nonspecific intraventricular conduction delay is now present Electronically Signed On 05-03-2017 8:17:57 EMPLOYEE RELATION MANAGER by Alcon Womack [email or web address] <ELECTRONICALLY SIGNED> By: Alcon Womack MD, [facility] 05/03/17 08 Alcon Womack MD, [facility] /EPI
--- NOTE | ~2017-04-07 | HC ---
[facility] [place] [address] [place] [address] CONSULTATION Name: RUPESHANGEL Ulysses Room #: 245-P ADM IN M.R.#: [id number] Admission: 04/07/17 Attend Phys: Leonid Hoffman DO Discharge: Date of : 52 Report #: [id number] THIS REPORT FOR: //name// CC: Leonid Hoffman Rufino Mcclure DATE OF SERVICE: 04/26/2017 HISTORY OF PRESENT ILLNESS: This is a gentleman who has been in the hospital now for the last few weeks. He does admit he has some chronic depression to begin with. A lot of his depression he notes is situational in nature including related to time spent in the and having a who suffered for years before passing of complications related to cancer. Now recently, his health issues have started to increase and accumulate. He admits to some passive thoughts of , but no intent or plan to harm himself at this time. "I have lost a sense of purpose." He is worried about the future and extreme pain and inconvenience from exacerbation of medical problems. "I hope if it comes down to it, they will at least keep me comfortable." He is feeling somewhat negatively and admits to superstition. He was offered and refused communion during our interview noting "all the procedures IN THE PAST WHERE I HAVE HAD COMMUNION THE DAY before have gone poorly." PAST PSYCHIATRIC HISTORY: The patient notes he has had a history of several suicide attempts, but has not received psychiatric treatment after any of these. He explains "I just took a few extra Ambien than usual to see what would happen and I always woke up." He had one course of psychotherapy that lasted nearly 20 treatments. He notes when the insurance stopped paying, he stopped going. He did not find it especially beneficial. He notes he has been on an antidepressant that started "with an L." Also, I believe he has been on Paxil, currently taking citalopram. No overwhelming benefit from any of these. ALLERGIES: ROSIGLITAZONE. PAST MEDICAL HISTORY: Hypertension, pain disorder, hypercholesterolemia, coronary artery disease, diabetes, cardiac tamponade, atrial fibrillation. SOCIAL HISTORY: He is . He is a [employer] graduate. 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 There is really not any push to train or advance new remote pilot operator fighter." There are no active substance abuse issues. MENTAL STATUS EXAM: male, appropriately dressed in hospital attire. Depressed mood, restricted affect, limited eye contact. Speech is somewhat [facility] [address] [facility] [place] [address] CONSULTATION Name: ANGEL GODDARD Room #: 245-P [facility] IN M.R.#: [id number] Admission: 04/07/17 Attend Phys: Leonid Hoffman DO Discharge: Date of : 52 Report #: [id number] circumstantial, but not tangential and there is no formal thought disorder. Suicidal thoughts of a passive nature. No active suicidal thinking. No psychosis. Insight and judgment fair. DIAGNOSIS: Major depressive disorder, recurrent, severe. RECOMMENDATIONS: We will change citalopram to Cymbalta from the standpoint of offering a medication that may have some analgesic benefits and also more balanced approach between serotonin and norepinephrine. He may benefit from ongoing psychotherapy from the standpoint that he is intelligent and insightful though he unfortunately tends to be a bit pessimistic. I think he will be somewhat resistant to therapy also. I did provide supportive psychotherapy. Our service will try to check up with this gentleman in some sort of interval to evaluate response to Cymbalta. He also may be a candidate for followup with a therapist in our office. <ELECTRONICALLY SIGNED> By: Carmelo Celeste MD 04/27/17 1402 1444 1558 Carmelo Celeste MD /nt
--- NOTE | ~2017-04-07 | HC ---
[facility] [address] [place] [address] CONSULTATION Name: ANGEL GODDARD Room #: 245-P ADM IN M.R.#: [id number] Admission: 04/07/17 Attend Phys: Leonid Hoffman DO Discharge: Date of : 52 Report #: [id number] THIS REPORT FOR: //name// CC: Leonid Krishnamurthyore Ren EVANGELISTA DATE OF SERVICE: 04/07/2017 REASON FOR CONSULTATION: Right ankle fracture. HISTORY OF PRESENT ILLNESS: The patient is a 66-year-old male who reportedly presented to the Emergency Department with left-sided chest pain, shortness of air. He reports falling approximately 2 days ago and sustaining an injury to his right ankle. He reported that it was painful, but he was able to weightbear. He reports frequent lightheaded spells. REVIEW OF SYSTEMS: MUSCULOSKELETAL: See HPI. Denies any other extremity injuries. NEUROLOGIC: Denies numbness or tingling in his extremities. PAST MEDICAL HISTORY: Significant for benign prostatic hyperplasia, coronary artery disease, chronic kidney disease, history of cerebrovascular accident, diabetes mellitus type 2, history of a head injury. History of hypertension, orthostatic hypotension, pleural effusion, apparently history of a pulmonary nodule and syncope. PAST SURGICAL HISTORY: Bilateral inguinal hernia repair, cervical fusion, tonsils and adenoid removal, bilateral lower extremity stent placement, CABG. ALLERGIES: INCLUDE AVANDIA. MEDICATIONS: Include aspirin, famotidine, chloride, insulin, ipratropium, albuterol, tamsulosin, amiodarone, fenofibrate and torsemide. SOCIAL HISTORY: He denies any prior use of any ambulatory devices. 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 He recently quit smoking and nicotine and reports rare alcohol use. PHYSICAL EXAMINATION: GENERAL: The patient is awake, alert and oriented. He converses well. He is a well-developed, well-nourished male, in no acute distress. VITAL SIGNS: Most recent vital signs are stable. His pulse oximetry is 100 mL at 2 liters per nasal cannula. EXTREMITIES: Examination of his bilateral upper extremities, he has some mild ecchymosis on the right thumb from just proximal to the MP joint all the way to [address] [address] CONSULTATION Name: ANGEL GODDARD Room #: 245-P [facility] IN M.R.#: [id number] Admission: 04/07/17 Attend Phys: Leonid Hoffman DO Discharge: Date of : 52 Report #: [id number] the nail, with minimal to no edema, some very mild tenderness at the proximal and middle phalanges of the thumb. The MP joint is stable. He otherwise has brisk capillary refill. Sensation is intact to light touch. He has full fist, full extension, full wrist, forearm, elbow and shoulder motion is painless. There is no tenderness to palpation throughout the entire left, remainder of the right upper extremity including the sternum, clavicle, shoulder, arm, elbow, forearm, wrist and the rest of the hand. Examination of left upper extremity: Skin is clean, dry and intact. He has brisk capillary refill. Sensation is intact to light touch. He has no tenderness to palpation throughout the left sternum, clavicle, shoulder, arm, elbow, forearm, wrist and hand. No pain with range of motion of any of these joints in the left upper extremity. Right lower extremity, he is in a sugar tong Orthoglass splint. He is comfortable. He has 2+ dorsalis pedis pulse. He has appropriate edema in the toes. He is able to wiggle the toes. He has no tenderness to palpation to the proximal leg, knee or thigh. No pain with range of motion of the right hip or knee. Left lower extremity exam, sensation is intact to light touch throughout. He has brisk capillary refill. EHL, FHL, dorsiflexion and plantar flexion are intact. He has no tenderness to palpation throughout the left thigh, knee, leg, ankle or foot. There is no pain with range of motion of the left hip, knee, ankle or foot. LABORATORY STUDIES: Done on 04/07/2017, show white blood cell count 6.7, hemoglobin 9.7, hematocrit platelet count is 193. Chemistry is pending. INR is 1.1. RADIOGRAPHS: AP, lateral and mortise view of the right ankle show a minimally displaced distal fibula fracture with a very small amount of medial joint space widening post-splint placement. Films are unchanged. IMPRESSION AND PLAN: 1. Right essentially minimally to nondisplaced bimalleolar ankle fracture. He is in a splint. I advised ice and elevation. My partner, Dr. Chase Solomon, will see the patient over the weekend and then one of my [place] orthopedic surgery partners, formerly [facility], can follow him up as an outpatient to closely watch the fracture and then determine if he can be transitioned into a cast or if the alignment changes such that he requires surgery. 2. Right thumb ecchymosis. He reports this is new from the fall. I will obtain an x-ray today and recheck him tomorrow. Questions were encouraged and answered to the best of my ability. <ELECTRONICALLY SIGNED> By: Patricia Marie MD 04/25/17 1412 1736 0757 Patricia Marie MD /nt
--- NOTE | ~2017-04-07 | EKG ---
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: ROMY : 1950 Requested By: John Patterson Order Number: [id number] MD: Alcon Womack Measurements Intervals [place] Rate: 71 P: SD: QRS: 61 QRSD: 146 T: -13 QT: 556 QTc: 605 Interpretive Statements Atrial flutter with predominant 4:1 AV block Right bundle branch block Possible anterolateral infarct, age indeterminate Compared to ECG 04/20/2017 06:07:19 Atrial flutter is now present Electronically Signed On 04-25-2017 7:53:00 CLOTH FEEDER by Alcon Womack [email or web address] <ELECTRONICALLY SIGNED> By: Alcon Womack MD, [facility] 04/25/17 [phone] 0655 Alcon Womack MD, [facility] /EPI
--- NOTE | ~2017-04-07 | 2DMMODE ---
[place] [address] [place] [address] 2 D/M-MODE ECHOCARDIOGRAM Name: ANGEL GODDARD Ulysses Room #: 245-P [facility] IN M.R.#: [id number] Admission: 04/07/17 Attend Phys: Leonid Hoffman, Discharge: Date of : 52 Date of Service: 04/25/17 1428 Report #: [id number] THIS REPORT FOR: //name// APPROVED REPORT Study performed: 04/25/2017 13:18:08 EXAM: Limited 2D, Doppler, and color-flow Echocardiogram Patient Location: ICU Room #: [facility] Status: routine BSA: 1.96 BP: 140/81 mmHg Other Information Study Quality: Technically Difficult/Technically Limited Technically limited study due to post operative dressings, inability to position patient. Indications Dyspnea Pericardial Effusion Hypertension/HDD Pericardial window performed 04/17/17 2D Dimensions IVC: 19.00 mm Tricuspid Valve TR Peak Bruce.: 2.54 m/s RAP Estimate: 10.00 mmHg TR Peak Gr.: 25.81 mmHg PA Pressure: 36.00 mmHg Left Ventricle Left ventricle is grossly normal size. The left ventricular systolic function is normal. The left ventricular ejection fraction is within the normal range. LVEF is 55-60%. This study is not technically sufficient to allow evaluation of the LV diastolic function. Aortic Valve The aortic valve is normal in structure. Mitral Valve The mitral valve is normal in structure. [facility] [place] [place] [address] [address] 2 D/M-MODE ECHOCARDIOGRAM Name: ANGEL GODDARD Room #: 245-P ADM IN M.R.#: [id number] Admission: 04/07/17 Attend Phys: Leonid Hoffman, Discharge: Date of : 52 Date of Service: 04/25/17 1428 Report #: [id number] Tricuspid Valve The tricuspid valve is normal in structure. Trace to mild tricuspid regurgitation. PAP is estimated at 36 mmHg. Great Vessels IVC is normal in size and collapses <50% with inspiration. Pericardium Moderate to large pericardial effusion is seen. <Conclusion> Left ventricle is grossly normal size. LVEF is 55-60%. The aortic valve is normal in structure. The mitral valve is normal in structure. The tricuspid valve is normal in structure. Trace to mild tricuspid regurgitation. PAP is estimated at 36 mmHg. Moderate to large pericardial effusion is seen. <ELECTRONICALLY SIGNED> By: Gee Khan MD 04/25/17 1428 27 27 Gee Khan MD /INF
--- NOTE | ~2017-04-07 | EKG ---
[address] [place] [address] ELECTROCARDIOGRAM REPORT Name: RUPESHANGEL Ulysses Room #: 245-P ADM IN M.R.#: [id number] Admission: 04/07/17 Attend Phys: Leonid Hoffman DO Discharge: Date of : 52 Report #: [id number] THIS REPORT FOR: //name// [facility] Test Date: 2017-04-30 Test Time: 08:27:43 Pat Name: ANGEL GODDARD Department: Room: 245 P Gender: M Assistant At Surgery: SANDEEP : 1950 Requested By: Eva Pace Order Number: [id number] MD: John Patterson Measurements Intervals [place] Rate: 80 P: 161 WI: 147 QRS: 80 QRSD: 145 T: -4 QT: 386 QTc: 446 Interpretive Statements Incomplete analysis due to missing data in precordial lead(s) Sinus or ectopic atrial rhythm Right bundle branch block Missing lead(s): V3,V4 Compared to ECG 04/27/2017 06:35:12 Ectopic atrial rhythm now present Atrial flutter no longer present AV block, advanced (high-grade) no longer present Myocardial infarct finding no longer present Electronically Signed On 04-30-2017 16:05:23 ENROLLMENT MANAGER by John Patterson [email or web address] <ELECTRONICALLY SIGNED> By: John Patterson MD 04/30/17 1605 6 6 John Patterson MD /EPI
--- NOTE | ~2017-04-07 | 2DMMODE ---
[address] [address] 2 D/M-MODE ECHOCARDIOGRAM Name: ANGEL GODDARD Ulysses Room #: 246-P ADM IN M.R.#: [id number] Admission: 04/07/17 Attend Phys: Leonid Hoffman, Discharge: Date of : 52 Date of Service: 04/17/17 1323 Report #: [id number] THIS REPORT FOR: //name// APPROVED REPORT Study performed: 04/16/2017 22:03:08 EXAM: Comprehensive 2D, Doppler, and color-flow Echocardiogram Patient Location: Bedside Room #: 246 Status: stat BSA: 2.14 HR: 83 bpm BP: 94/68 mmHg Other Information Study Quality: Adequate Risk Factors: Cardiac Risk Factors: HTN, DM Indications COPD Dyspnea Chest Pain S/P CABG 2016 Left Ventricle The left ventricle is normal size. Mild concentric left ventricular hypertrophy. Left ventricular systolic function is normal. LVEF is 55-60%. This study is not technically sufficient to allow evaluation of the LV diastolic function. Right Ventricle The right ventricle is normal size. The right ventricular systolic function is normal. Atria The left atrium size is normal. The right atrium size is normal. Aortic Valve The Aortic valve is sclerotic. Mitral Valve [address] [address] 2 D/M-MODE ECHOCARDIOGRAM Name: ANGEL GODDARD Room #: 246-P ADM IN M.R.#: [id number] Admission: 04/07/17 Attend Phys: Leonid Hoffman, Discharge: Date of : 52 Date of Service: 04/17/17 1323 Report #: [id number] The mitral valve is normal in structure. Great Vessels IVC is not visualized. Pericardium Large pericardial effusion. Large pleural effusion. <Conclusion> Very limited study LVEF is 55-60%. Midl LVH Left ventricular systolic function is normal. The Aortic valve is sclerotic. The mitral valve is normal in structure. Large pericardial effusion, possible tamponade physiology. <ELECTRONICALLY SIGNED> By: Alcon Womack MD, FACC 04/17/171322 22 22 Alcon Womack MD, FACC /INF
--- NOTE | ~2017-04-07 | O ---
[facility] [place] [address] [address] OPERATIVE REPORT Name: ANGEL GODDARD Room #: 245-P [facility] IN M.R.#: [id number] Admission: 04/07/17 Attend Phys: Leonid Hoffman DO Discharge: 05/04/17 Date of : 52 Report #: [id number] THIS REPORT FOR: //name// CC: Leonid Abreuodore Ren DATE OF SERVICE: 04/17/2017 PREOPERATIVE DIAGNOSES: Pericardial effusion, pericardial tamponade. FINAL DIAGNOSES: Pericardial effusion, pericardial tamponade. OPERATIVE PROCEDURE PERFORMED: Pericardial window, subxiphoid. SURGEON: Fernando Medeiros MD REVENUE CYCLE ADMINISTRATOR: GUILLE Torres. ANESTHESIA: General. OPERATIVE INDICATIONS: The patient is a 66-year-old male who is now about a month postop from coronary artery bypass grafting. The patient was rehospitalized initially for a left-sided pericardial effusion, which has been drained and continues to show evidence of persistent drainage after 7 or 8 days of chest tube placement. The patient became hypotensive last night, required admission to the Intensive Care Unit and improved with IV fluids. He became hypotensive again today and required Levophed. The patient underwent echocardiography showing evidence of what was considered a large pericardial effusion with evidence of respiratory variation. It was therefore felt that the patient would benefit from a pericardial window. OPERATIVE SUMMARY: The patient was brought to the operating room and placed on the OR table in supine position. After anesthesia was induced via the general endotracheal route and monitoring lines have been positioned, the patient was prepped and draped in sterile fashion with chlorhexidine. I opened the prior lower aspect of the sternotomy incision. We dissected down through the subcutaneous fat, identified the xiphoid process and removed it. Bleeding was controlled with electrocautery. I then carefully dissected over the pericardium and entered the pericardial space. It was enlarged with a hemostat. A clear fluid returned. We placed a suction catheter in the pericardial space and we removed approximately 250 mL of clear straw-colored pericardial fluid. Once no further fluid could be drained, I placed a 28-Amharic chest tube into the pleural space, bringing it out through a separate stab incision. We then reapproximated the fascia, the subcutaneous and then the skin with absorbable suture. The procedure was completed. The patient was taken back to the ICU in stable condition. It should be noted that transesophageal echocardiography was [address] [address] OPERATIVE REPORT Name: MIRANDABRADENJENNIEANGEL Arora Room #: 245-P [facility] IN [facility].#: [id number] Admission: 04/07/17 Attend Phys: Leonid Hoffman DO Discharge: 05/04/17 Date of : 52 Report #: [id number] performed during this case and there was noted to be only a minimal amount of pericardial fluid present posteriorly at the completion of the procedure. This is at a site that is not accessible via the subxiphoid approach. <ELECTRONICALLY SIGNED> By: Fernando Medeiros MD 05/10/17 0805 1744 1804 Fernando Medeiros MD /nt
--- NOTE | ~2017-04-07 | O ---
[facility] [place] [address] [address] OPERATIVE REPORT Name: ANGEL GODDRAD Room #: 245-P [facility] IN M.R.#: [id number] Admission: 04/07/17 Attend Phys: Leonid Hoffman DO Discharge: 05/04/17 Date of : 52 Report #: [id number] THIS REPORT FOR: //name// CC: Leonid Abreumarcelina Mcclure DATE OF SERVICE: 04/27/2017 PREOPERATIVE DIAGNOSES: 1. Pericardial effusion. 2. Left pleural effusion. FINAL DIAGNOSIS: Suppurative pericarditis. OPERATIVE PROCEDURE PERFORMED: 1. Left thoracotomy with decortication of left lower lobe and lateral pericardial window. 2. I and D of lower midline sternotomy incision. SURGEON: Fernando Medeiros MD DOCK GRADER: Sully Pickens. ANESTHESIA: General. OPERATIVE INDICATIONS: The patient is a 66-year-old male who is well known to me from prior coronary artery bypass grafting approximately 2 months prior. The patient has had recurrent left pleural effusions as well as a pericardial effusion that was recently drained by subxiphoid pericardial approach. The patient is now about 2 weeks out from that procedure and he has developed a recurrent pericardial effusion. He is just brought to the operating room now for redo pericardial drainage, at this time through a lateral approach. OPERATIVE SUMMARY: The patient was brought to the operating room and placed on the OR table in supine position. After anesthesia was induced via the general endotracheal route with a dual lumen endotracheal tube, the patient was placed in the right lateral decubitus position and then prepped and draped in sterile fashion with chlorhexidine. An anterolateral thoracotomy incision was made and we entered the pleural space through the seventh intercostal space. We suctioned clear straw-colored fluid from the left pleural space, which there was not a great degree. We did note an inflammatory peel on the surface of the left lower lobe and this peel was painstakingly removed from the left lower lobe to allow it to reexpand. Once this was completed, I performed an incision on the pericardium. We immediately returned a purulent material from the pericardial space. I excised a small portion of the pericardium about the size of a half dollar, I manually palpated within the space to break up any pockets of pus and [address] [address] OPERATIVE REPORT Name: ANGEL GODDARD Room #: 245-P [facility] IN M.R.#: [id number] Admission: 04/07/17 Attend Phys: Leonid Hoffman DO Discharge: 05/04/17 Date of : 52 Report #: [id number] irrigated this pericardium with saline. Once I felt that drainage was adequate, I placed a 24-Eric drain into the left pleural space and then positioned it within the pericardium. A 28-Greek chest tube that was right angled was placed in left pleural space as well. It was brought out through a separate stab incision also. The lungs were reinflated, the ribs were reapproximated with #1 PDS, muscular layers were closed with #1 Vicryl, subq with a 2-0 Vicryl, and the skin with 3-0 Monocryl. We then placed the patient in supine position. The patient did have known drainage from the inferior portion of his sternotomy incision where the prior subxiphoid pericardial window had been created. I then reopened this incision, which fell apart rather easily. No further purulence was identified, but we did extend this wound opening down to the level of the xiphoid process, which I had previously been removed and I could palpate into the pericardial space. We then placed a wound VAC over this site. The procedure was completed and the patient was taken to the postanesthesia care unit in stable condition. The operative blood loss approximately 50 mL. <ELECTRONICALLY SIGNED> By: Fernando Medeiros MD 05/10/17 0805 1546 1703 Fernando Medeiros MD /nt
--- NOTE | ~2017-04-07 | EKG ---
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 : 1950 Requested By: Mely Constantino Order Number: [id number] MD: Alcon Womack Measurements Intervals [place] Rate: 97 P: 31 VA: 165 QRS: 122 QRSD: 146 T: -29 QT: 368 QTc: 468 Interpretive Statements Sinus rhythm Right bundle branch block Compared to ECG 04/16/2017 22:38:32 No significant change was found Electronically Signed On 04-20-2017 8:27:12 TRAINING EXECUTIVE by Alcon Womack [email or web address] <ELECTRONICALLY SIGNED> By: Alcon Womack MD, [facility] 04/20/1727 6 6 Alcon Womack MD, [facility] /EPI
--- NOTE | ~2017-04-07 | EKG ---
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 Audit Expert: ROMY : 1950 Requested By: Eva Pace Order Number: [id number] MD: Alcon Womack Measurements Intervals [place] Rate: 69 P: DC: QRS: 93 QRSD: 151 T: -4 QT: 504 QTc: 540 Interpretive Statements Atrial flutter with predominant 4:1 AV block Right bundle branch block Possible anterolateral infarct, age indeterminate Compared to ECG 04/25/2017 06:55:25 No significant change was found Electronically Signed On 04-26-2017 7:48:11 GEOMETRY TEACHER by Alcon Womack [email or web address] <ELECTRONICALLY SIGNED> By: Alcon Womack MD, [facility] 04/26/17 0748 0644 0644 Alcon Womack MD, [facility] /EPI
--- NOTE | ~2017-04-07 | HC ---
[facility] [place] [address] [place] [address] CONSULTATION Name: ANGEL GODDARD Room #: 246-P ADM IN M.R.#: [id number] Admission: 04/07/17 Attend Phys: Leonid Hoffman DO Discharge: Date of : 52 Report #: [id number] THIS REPORT FOR: //name// CC: Leonid Abreumarcelina Mcclure DATE OF SERVICE: 04/17/2017 REASON FOR CONSULTATION: 1. Recurrent pleural effusion. 2. Pericardial effusion. 3. Acute kidney injury. 4. Status post coronary artery bypass graft. 5. History of ankle fracture. 6. Hypertension. 7. Paroxysmal atrial fibrillation. 8. Diabetes. 9. Status post arrest. PLAN: The patient was seen urgently last night, unable to dictate; however, had CPR started when patient was hypotensive on Levophed and short of breath. After I believe 45 seconds CPR, chest tube drain and pressures returned. At present, we will continue fluids per renal, aerosol therapy, reviewed chest x-ray with Dr. Medeiros and if there is a change, may need a new larger chest tube and possible evaluate cardiac status. V/Q scan was ordered, which was negative. HISTORY OF PRESENT ILLNESS: A 66-year-old male had CABG done on March 01 has had recurrent pleural effusions, which have been tapped, had a CT chest done on the which did not reveal significant fluid, but had continuous drainage yesterday, had decrease in chest fluid; however, after the CPR event things improved. Echo was done, which showed possible pericardial tamponade. He now seen this morning and after the episode last night has been stable. PAST SURGICAL HISTORY: 1. CABG. 2. Iliac stents. 3. Hernia. 4. Neck surgery. ALLERGIES: AVANDIA. SOCIAL HISTORY: Positive tobacco and ETOH in the past. MEDICATIONS: Include Bystolic, morphine, Lovenox, fenofibrate, Celexa, amiodarone, Pepcid, aspirin. [facility] [address] [place] [address] CONSULTATION Name: ANGEL GODDARD Room #: 246-P [facility] IN ..#: [id number] Admission: 04/07/17 Attend Phys: Leonid Hoffman DO Discharge: Date of : 52 Report #: [id number] REVIEW OF SYSTEMS: Hypertension, diabetes, question SLE, question adrenal insufficiency, question history of CVA, BPH. PHYSICAL EXAMINATION: VITAL SIGNS: This morning, temperature 98.5, pulse 68, respirations 18, BP 93/59. LUNGS: Showed decreased breath sounds. Chest tube draining. HEART: Regular. ABDOMEN: Bowel sounds present. EXTREMITIES: Showed swelling. NEUROLOGIC: He was alert and oriented. Labs and x-ray were reviewed. <ELECTRONICALLY SIGNED> By: Eva Pace MD 04/18/17 1624 1552 0320 Eva Pace MD /nt
--- NOTE | ~2017-04-07 | S ---
[facility] [place] [address] [place] [address] SURGICAL PATH RPT PROCEDURE Name: ANGEL GODDARD Room #: 245-P ADM IN M.R.#: [id number] Admission: 04/07/17 Date of : 52 Discharge: Report #: [id number] Path Case #: [id number] PATHOLOGY REPORT COLLECTION DATE: 04/27/2017 RECEIVED DATE: 04/27/2017 SUBMITTING PHYS: Dr. Fernando Medeiros OTHER PHYS: Dr. Leonid Mcclure SPECIMEN(S) RECEIVED: A.Left pleural peel * * * * * * * * * * * * FINAL DIAGNOSIS: A. Left pleural peel: - Pleura with fibrosis, hemorrhage, acute and chronic inflammation, reactive changes, and focal giant cells. - A GMS and AFB stain are negative for fungal and acid fast microorganisms (Block A1; appropriate controls). COMMENT: This case is co-reviewed by Dr. Kavitha Simmons. PATHOLOGIST: Fernando Wild M.D. REPORT ELECTRONICALLY SIGNED BY: Fernando Wild M.D. DATE/TIME: 05/02/2017 15:10 * * * * * * * * * * * * GROSS PATHOLOGY: Received in formalin labeled "left pleural peel" and consists of a few soft, irregularly-shaped, glistening, davis-pink, and hemorrhagic tissue fragments admixed with minimal blood clot, 4.5 x 4.0 x 1.5 cm and aggregate. Off Track Betting Manager sections are submitted as A1. (FELA; 04/28/2017) CLINICAL HISTORY: Pericardial effusion INITIAL CPT CODE(S): 64944 A; 51605, 84310 Professional services performed by [facility] at [facility] [address] , [place] [address] [facility] [address] [place] [address] SURGICAL PATH RPT PROCEDURE Name: ANGEL GODDARD Room #: 245-P ADM IN M.R.#: [id number] Admission: 04/07/17 Date of : 52 Discharge: Report #: [id number] Path Case #: [id number] [facility] at [address] [place] [address], [place] [address]. [facility] [address] [place] [address] PHONE: [phone] DIRECTOR: David Tapia M.D. * * * END OF REPORT * * *
--- NOTE | ~2017-04-07 | HC ---
[facility] [place] [address] CONSULTATION Name: MIRANDAANGEL PARRY Room #: 209-P [facility] IN M.R.#: [id number] Admission: 04/07/17 Attend Phys: Leonid Hoffman DO Discharge: Date of : 52 Report #: [id number] THIS REPORT FOR: //name// CC: Leonid Hoffman Rufino Mcclure DATE OF SERVICE: 04/11/2017 HISTORY OF PRESENT ILLNESS: The patient is a 66-year-old white male with history of coronary artery bypass grafting x 5 on 03/01/2017 complicated by acute respiratory failure, acute renal insufficiency, was eventually discharged after rehabilitation stay on 03/18/2017. At that point, he was modified independent with functional mobility and basic ADLs. Recommendation is that he have some initial 24-hour assistance with no driving. The patient has been at home and apparently had the onset of chest pain and was noted to have a significant pleural effusion. He had a couple of falls prior to admission with a rib fracture and upon admission complained of right ankle pain as well as some right thumb pain. He was diagnosed with a right bimalleolar fracture, was seen by Orthopedics, and has been placed in a splint, nonweightbearing. Dr. Marie has been following and the patient also was noted to have a right corner fracture involving the base of the right thumb proximal phalanx. He has been placed in a splint for the right thumb and also a splint for the right ankle. He is nonweightbearing in right lower extremity. He has had a pigtail catheter placed for his pleural effusion. We are seeing him in rehabilitation medicine consultation. PAST MEDICAL HISTORY: Includes the above noted coronary artery bypass grafting. He has history of peripheral vascular disease with an iliac arterial procedure in both legs, history of longstanding diabetes mellitus, hypertension, and hypercholesterolemia. PAST SURGICAL HISTORY: Includes a prior hernia repair. MEDICATIONS: Please see the full medication listing. HABITS: One pack per day, uses some alcohol. SOCIAL HISTORY: He lives alone. He has a brother that is involved. Did have a walker, premorbidly was a community ambulator. He had declined the prior recommendation for 24-hour caregivers. REVIEW OF SYSTEMS: No current complaints of chest pain, shortness of breath, or abdominal discomfort. Some frustration with his current medical condition. PHYSICAL EXAMINATION: GENERAL: A 66-year-old male in no obvious distress. [address] [address] CONSULTATION Name: ANGEL GODDARD Ulysses Room #: 209-P [facility] IN ..#: [id number] Admission: 04/07/17 Attend Phys: Leonid Hoffman DO Discharge: Date of : 52 Report #: [id number] VITAL SIGNS: Last recorded temperature 97.6, pulse 72, respirations 17, blood pressure 109/64. NEUROLOGIC: He is alert. Follows basic 1 step commands without difficulty. He is on 2 liters nasal prong O2. Facies are symmetric. Right thumb spica splint in place. He can move the fingers. Functional strength of the proximal upper extremity is probably a grade 4-/5, left upper extremity is 4-/5. Lower extremities, his right ankle is wrapped. He can wiggle the toes. There is no focal calf swelling. Proximal strength is 4- to 3+. Left lower extremity strength is 3+ to 4-. Functionally, he has been min assist with transfers. Lower extremity dressing is mod assist. ASSESSMENT: A 66-year-old male with the following problem list: 1. Falls with gait instability. 2. Right ankle bimalleolar fracture, splinted, nonweightbearing. 3. Right thumb base fracture, in a thumb spica splint. 4. Pleural effusion with pigtail catheter. 5. Rib fracture secondary to fall. 6. Recent coronary artery bypass grafting. 7. Chronic obstructive pulmonary disease. 8. Hypertension. 9. Hyperlipidemia. 10. Insulin-dependent diabetes mellitus. 11. Peripheral vascular disease. PLAN: The patient is not a candidate for another acute in-hospital inpatient rehabilitation stay. Would agree with custodial facility options as you are. Thank you for asking us to assist in this patient's care. <ELECTRONICALLY SIGNED> By: Jacinto Montenegro MD 04/22/17 1108 1650 0121 Jacinto Montenegro MD /[facility]
--- NOTE | ~2017-04-07 | EKG ---
[address] [address] ELECTROCARDIOGRAM REPORT Name: ANGEL GODDARD Room #: 245- ADM IN M.R.#: [id number] Admission: 04/07/17 Attend Phys: Leonid Hoffman DO Discharge: Date of : 52 Report #: [id number] THIS REPORT FOR: //name// [facility] Test Date: 2017-05-01 Test Time: 07:48:41 Pat Name: ANGEL GODDARD Department: Room: 245 Gender: M Stave Cutting Supervisor: LILIYA : 1950 Requested By: Eva Pace Order Number: [id number] MD: John Patterson Measurements Intervals [place] Rate: 80 P: 157 OR: 148 QRS: 65 QRSD: 140 T: -5 QT: 501 QTc: 579 Interpretive Statements Sinus or ectopic atrial rhythm IVCD, consider atypical RBBB Inferior infarct, age indeterminate Lateral leads are also involved Compared to ECG 04/30/2017 08:27:43 Myocardial infarct finding now present Electronically Signed On 05-01-2017 10:00:02 CHANGE MANAGEMENT by John Patterson [email or web address] <ELECTRONICALLY SIGNED> By: John Patterson MD 05/01/17 1000 0748 John Patterson MD /EPI
--- NOTE | ~2017-04-07 | EKG ---
[address] [address] ELECTROCARDIOGRAM REPORT Name: ANGEL GODDARD Room #: 246-P ADM IN M.R.#: [id number] Admission: 04/07/17 Attend Phys: Leonid Hoffman DO Discharge: Date of : 52 Report #: [id number] THIS REPORT FOR: //name// [facility] Test Date: 2017-04-16 Test Time: 18:20:46 Pat Name: ANGEL GODDARD Department: Room: 246 Gender: M Receiving Manager: daron : 1950 Requested By: Leonid Hoffman Order Number: [id number] MD: Alcon Womack Measurements Intervals [place] Rate: 88 P: 34 CO: 150 QRS: 87 QRSD: 139 T: -10 QT: 395 QTc: 478 Interpretive Statements Sinus rhythm Right bundle branch block Compared to ECG 04/07/2017 06:23:21 No significant changes Electronically Signed On 04-17-2017 14:19:40 NURSING ASSOCIATE by Alcon Womack [email or web address] <ELECTRONICALLY SIGNED> By: Alcon Womack MD, [facility] 04/17/17 1419 19 19 Alcon Womack MD, [facility] /EPI
--- NOTE | ~2017-04-07 | EKG ---
[address] [address] ELECTROCARDIOGRAM REPORT Name: ANGEL GODDARD Room #: 210-P ADM IN M.R.#: [id number] Admission: 04/07/17 Attend Phys: Leonid Hoffman DO Discharge: Date of : 52 Report #: [id number] THIS REPORT FOR: //name// [facility] Test Date: 2017-04-07 Test Time: 06:23:21 Pat Name: ANGEL GODDARD Department: Room: 210 Gender: M Buffer Chrome: KALA : 1950 Requested By: Kirk Parker Order Number: [id number] MD: Alcon Womack Measurements Intervals [place] Rate: 85 P: 35 [place]: 167 QRS: 84 QRSD: 150 T: 1 QT: 451 QTc: 537 Interpretive Statements Sinus rhythm Right bundle branch block Compared to ECG 03/24/2017 15:06:00 No significant change was found Electronically Signed On 04-07-2017 17:08:49 INSURANCE ACCOUNT EXECUTIVE by Alcon Womack [email or web address] <ELECTRONICALLY SIGNED> By: Alcon Womack MD, [facility] 04/07/17 1708 2 2 Alcon Womack MD, [facility] /EPI
[~2017-04-07 06:19] MED LIST changes: +ASPIRIN325 PO; +COLACE100 MG PO; +DUONEB 2.5-0.5 M3 ML INH; +ENOXAPARIN30 MG/0.1 SUBQ; +FAMOTIDINE 10 M10 MG PO; +FENOFIBRATE54 MG PO; +HYDROCODONE-AP1 EAC6 PO; +LANTUS100 UNIT/M SUBQ; +MIRALAX17 GM PO; +PACERONE 200 M200 M1 PO; +POTASSIUM CHLO20 MEQ PO; +TORSEMIDE20 MG PO; +[UNRECOGNIZED DRUG - CODE] IV PUSH
[2017-04-07 06:41] LABS: POC CA IONIZED 4.5 mg/dL (4.5-5.3); POC HEMOGLOBIN 10.2 g/dL (14.0-18.0); POC POTASSIUM 3.5 mmol/L (3.5-5.1)
[2017-04-07 07:18] LABS: ABSOLUTE NEUTROPHILS 5.3 thou/uL (1.4-8.2); BASOPHILS 0.2 % (0.0-2.0); EOSINOPHILS 0.2 % (0.0-3.0); HEMATOCRIT 29.1 % (42.0-52.0); HEMOGLOBIN 9.7 gm/dL (14.0-18.0); LYMPHOCYTES 13.3 % (24.0-44.0); MCH 30.8 pg (26.0-34.0); MCHC 33.3 g/dL (28.0-37.0); MCV 92.5 fL (80.0-100.0); MONOCYTES 6.6 % (1.0-8.0); PLATELET COUNT 193 thou/uL (150-400); POLYS 79.7 % (36.0-66.0); RBC 3.14 mil/uL (4.50-6.00); RDW 15.9 % (10.5-14.5); WBC 6.7 thou/uL (4.0-11.0)
[2017-04-07 07:21] LABS: MANUAL DIFF NO
[2017-04-07 07:32] LABS: ANION GAP 9 mmol/L (7-16); BUN 28 mg/dL (7-18); CALCIUM 8.5 mg/dL (8.5-10.1); CHLORIDE 98 mmol/L (98-107); CO2 29 mmol/L (21-32); CREATININE 2.1 mg/dL (0.7-1.3); GLUCOSE 266 mg/dL (74-106); POTASSIUM 3.9 mmol/L (3.5-5.1); SODIUM 136 mmol/L (136-145)
[2017-04-07 07:36] LABS: APTT 26.6 Seconds (24.5-32.8); INR 1.1; PROTIME 11.4 Seconds (9.3-11.4)
[2017-04-07 07:38] LABS: ALBUMIN 2.4 g/dL (3.4-5.0); ALKALINE PHOSPHATASE 55 U/L (46-116); MAGNESIUM 1.6 mg/dL (1.8-2.4); SGOT 47 U/L (15-37); SGPT 26 U/L (30-65); TOTAL BILIRUBIN 0.5 mg/dL (<0.1-1.0); TOTAL PROTEIN 6.8 g/dL (6.4-8.2); TROPONIN-I < 0.04 ng/mL (<0.06)
[2017-04-08] VITALS (7 sets, daily range): BP systolic 94–134; BP diastolic 65–79
[2017-04-08 04:04] LABS: ABSOLUTE NEUTROPHILS 4.1 thou/uL (1.4-8.2); BASOPHILS 0.3 % (0.0-2.0); EOSINOPHILS 0.3 % (0.0-3.0); HEMATOCRIT 30.2 % (42.0-52.0); HEMOGLOBIN 10.1 gm/dL (14.0-18.0); LYMPHOCYTES 17.8 % (24.0-44.0); MCH 31.1 pg (26.0-34.0); MCHC 33.6 g/dL (28.0-37.0); MCV 92.7 fL (80.0-100.0); MONOCYTES 7.3 % (1.0-8.0); PLATELET COUNT 175 thou/uL (150-400); POLYS 74.3 % (36.0-66.0); RBC 3.25 mil/uL (4.50-6.00); RDW 15.8 % (10.5-14.5); WBC 5.5 thou/uL (4.0-11.0)
[2017-04-08 04:07] LABS: MANUAL DIFF NO
[2017-04-08 04:19] LABS: CREATININE 1.5 mg/dL (0.7-1.3); POTASSIUM 3.5 mmol/L (3.5-5.1)
[2017-04-09 04:20] VITALS: BP 134/70
[2017-04-09 07:04] VITALS: BP 112/75
[2017-04-09 11:08] VITALS: BP 109/68
[2017-04-09 17:15] VITALS: BP 128/70
[2017-04-09 19:15] VITALS: BP 113/75
[2017-04-10 04:25] VITALS: BP 133/90
[2017-04-10 08:20] VITALS: BP 134/87
[2017-04-10 13:05] VITALS: BP 111/58
[2017-04-10 16:10] VITALS: BP 133/67
[2017-04-10 19:45] VITALS: BP 122/74
[2017-04-11 04:03] LABS: CALCIUM 8.3 mg/dL (8.5-10.1); CREATININE 0.9 mg/dL (0.7-1.3)
[2017-04-11 04:21] LABS: ABSOLUTE NEUTROPHILS 2.6 thou/uL (1.4-8.2); BASOPHILS 0.6 % (0.0-2.0); EOSINOPHILS 1.7 % (0.0-3.0); HEMATOCRIT 27.7 % (42.0-52.0); LYMPHOCYTES 20.8 % (24.0-44.0); MCH 30.9 pg (26.0-34.0); MCHC 32.4 g/dL (28.0-37.0); MCV 95.4 fL (80.0-100.0); MONOCYTES 7.2 % (1.0-8.0); PLATELET COUNT 170 thou/uL (150-400); POLYS 69.7 % (36.0-66.0); RDW 16.1 % (10.5-14.5); WBC 3.7 thou/uL (4.0-11.0)
[2017-04-11 04:37] LABS: MANUAL DIFF NO
[2017-04-11 04:53] VITALS: BP 125/68
[2017-04-11 07:09] VITALS: BP 148/80
[2017-04-11 11:16] VITALS: BP 109/64
[2017-04-11 16:45] VITALS: BP 125/76
[2017-04-11 20:30] VITALS: BP 139/75
[2017-04-12 03:52] VITALS: BP 107/74
[2017-04-12 07:06] VITALS: BP 108/70
[2017-04-12 11:33] VITALS: BP 93/56
[2017-04-12 16:24] VITALS: BP 94/60
[2017-04-12 19:46] VITALS: BP 108/70
[2017-04-13] VITALS (7 sets, daily range): BP systolic 91–125; BP diastolic 55–80
[2017-04-13 03:10] LABS: CALCIUM 8.3 mg/dL (8.5-10.1); CREATININE 1.2 mg/dL (0.7-1.3); MAGNESIUM 1.4 mg/dL (1.8-2.4)
[2017-04-14 04:13] VITALS: BP 92/56
[2017-04-14 07:15] VITALS: BP 96/57
[2017-04-14 11:31] VITALS: BP 98/62
[2017-04-14 15:01] VITALS: BP 95/62
[2017-04-14 19:44] VITALS: BP 92/59
[2017-04-15 03:56] VITALS: BP 122/77
[2017-04-15 07:14] VITALS: BP 123/79
[2017-04-15 11:16] VITALS: BP 88/53
[2017-04-15 15:25] VITALS: BP 99/58
[2017-04-15 19:11] VITALS: BP 103/65
[2017-04-16] VITALS (24 sets, daily range): BP systolic 50–139; BP diastolic 37–116
[2017-04-16 20:28] LABS: ABG SAMPLE TYPE ARTERIAL; BE(vivo) -6.4 mmol/L (-2 to +3); HCO3 14.2 mmol/L (22.0-26.0); LACTATE 3.03 mmol/L (0.5-2.0); O2(CT) 15.7 mL/dL (15.0-23.0); O2Hb 97.4 % (92.0-98.0); PCO2 17.7 mmHg (35.0-45.0); PO2 95.5 mmHg (80.0-100.0); STICK SITE R.BRACHIAL; pH 7.523 (7.360-7.450); sO2 98.1 % (92.0-98.0); tCO2 14.8 mmol/L (24.0-30.0)
[2017-04-16 20:47] LABS: ABSOLUTE NEUTROPHILS 6.9 thou/uL (1.4-8.2); BASOPHILS 0.3 % (0.0-2.0); EOSINOPHILS 0.5 % (0.0-3.0); HEMATOCRIT 33.7 % (42.0-52.0); HEMOGLOBIN 10.6 gm/dL (14.0-18.0); LYMPHOCYTES 10.3 % (24.0-44.0); MCH 30.4 pg (26.0-34.0); MCHC 31.5 g/dL (28.0-37.0); MCV 96.5 fL (80.0-100.0); MONOCYTES 5.9 % (1.0-8.0); PLATELET COUNT 222 thou/uL (150-400); RBC 3.49 mil/uL (4.50-6.00); RDW 17.4 % (10.5-14.5); WBC 8.3 thou/uL (4.0-11.0)
[2017-04-16 20:49] LABS: MANUAL DIFF NO
[2017-04-16 20:51] LABS: CALCIUM 8.6 mg/dL (8.5-10.1); CREATININE 2.9 mg/dL (0.7-1.3); POTASSIUM 4.5 mmol/L (3.5-5.1)
[2017-04-16 20:57] LABS: ALBUMIN 2.4 g/dL (3.4-5.0); MAGNESIUM 1.7 mg/dL (1.8-2.4); TOTAL BILIRUBIN 0.3 mg/dL (<0.1-1.0); TOTAL PROTEIN 6.9 g/dL (6.4-8.2)
[2017-04-17] VITALS (47 sets, daily range): BP systolic 69–129; BP diastolic 48–95
[2017-04-17 04:53] LABS: ABSOLUTE NEUTROPHILS 4.5 thou/uL (1.4-8.2); BASOPHILS 0.2 % (0.0-2.0); HEMATOCRIT 26.8 % (42.0-52.0); HEMOGLOBIN 8.7 gm/dL (14.0-18.0); LYMPHOCYTES 10.4 % (24.0-44.0); MCH 30.9 pg (26.0-34.0); MCHC 32.4 g/dL (28.0-37.0); MCV 95.3 fL (80.0-100.0); MONOCYTES 6.4 % (1.0-8.0); PLATELET COUNT 180 thou/uL (150-400); RBC 2.81 mil/uL (4.50-6.00); RDW 16.9 % (10.5-14.5); WBC 5.4 thou/uL (4.0-11.0)
[2017-04-17 04:56] LABS: MANUAL DIFF NO
[2017-04-17 05:08] LABS: ALBUMIN 1.8 g/dL (3.4-5.0); CALCIUM 7.8 mg/dL (8.5-10.1); CREATININE 2.4 mg/dL (0.7-1.3); POTASSIUM 4.5 mmol/L (3.5-5.1); TOTAL BILIRUBIN 0.3 mg/dL (<0.1-1.0); TOTAL PROTEIN 5.2 g/dL (6.4-8.2)
[2017-04-17 05:32] LABS: ABG SAMPLE TYPE ARTERIAL; BE(vivo) -2.5 mmol/L (-2 to +3); HCO3 21.3 mmol/L (22.0-26.0); LACTATE 1.78 mmol/L (0.5-2.0); O2(CT) 12.4 mL/dL (15.0-23.0); O2Hb 94.8 % (92.0-98.0); PCO2 32.7 mmHg (35.0-45.0); PO2 82.5 mmHg (80.0-100.0); pH 7.432 (7.360-7.450); sO2 96.5 % (92.0-98.0); tCO2 22.3 mmol/L (24.0-30.0)
[2017-04-17 05:33] LABS: STICK SITE R.BRACHIAL
[2017-04-18] VITALS (54 sets, daily range): BP systolic 111–157; BP diastolic 56–98
[2017-04-18 04:14] LABS: BASOPHILS 0.8 % (0.0-2.0); EOSINOPHILS 0.4 % (0.0-3.0); HEMATOCRIT 29.3 % (42.0-52.0); HEMOGLOBIN 9.5 gm/dL (14.0-18.0); LYMPHOCYTES 8.9 % (24.0-44.0); MCH 31.2 pg (26.0-34.0); MCHC 32.5 g/dL (28.0-37.0); MCV 95.9 fL (80.0-100.0); MONOCYTES 6.9 % (1.0-8.0); PLATELET COUNT 187 thou/uL (150-400); RBC 3.05 mil/uL (4.50-6.00); RDW 16.6 % (10.5-14.5); WBC 7.2 thou/uL (4.0-11.0)
[2017-04-18 04:18] LABS: MANUAL DIFF NO
[2017-04-18 04:48] LABS: ALBUMIN 1.7 g/dL (3.4-5.0); CALCIUM 7.5 mg/dL (8.5-10.1); CREATININE 1.3 mg/dL (0.7-1.3); PHOSPHORUS 2.5 mg/dL (2.5-4.9); POTASSIUM 4.3 mmol/L (3.5-5.1); TOTAL BILIRUBIN 0.2 mg/dL (<0.1-1.0); TOTAL PROTEIN 5.4 g/dL (6.4-8.2)
[2017-04-18 08:58] LABS: ABG SAMPLE TYPE ARETERIAL; BE(vivo) -1.4 mmol/L (-2 to +3); HCO3 22.8 mmol/L (22.0-26.0); LACTATE 1.24 mmol/L (0.5-2.0); O2Hb 10.2 % (92.0-98.0); PCO2 35.9 mmHg (35.0-45.0); PO2 71.7 mmHg (80.0-100.0); STICK SITE LINE; tCO2 23.9 mmol/L (24.0-30.0)
[2017-04-18 08:59] LABS: sO2 94.8 % (92.0-98.0)
[2017-04-18 15:26] LABS: URINE BILIRUBIN NEGATIVE (Negative); URINE BLOOD TRACE (Negative); URINE COLOR YELLOW; URINE GLUCOSE-RANDOM* NEGATIVE (Negative); URINE KETONES NEGATIVE (Negative); URINE PROTEIN (DIPSTICK) NEGATIVE (Negative); URINE UROBILINOGEN 0.2 E.U./dl (0.2-1.0)
[2017-04-18 15:28] LABS: URINE LEUKOCYTES-REFLEX TRACE (Negative)
[2017-04-19] VITALS (21 sets, daily range): BP systolic 89–159; BP diastolic 46–82
[2017-04-19 04:26] LABS: ALBUMIN 1.5 g/dL (3.4-5.0); CALCIUM 7.7 mg/dL (8.5-10.1); PHOSPHORUS 2.9 mg/dL (2.5-4.9); POTASSIUM 3.7 mmol/L (3.5-5.1)
[2017-04-19 05:02] LABS: HEMATOCRIT 26.5 % (42.0-52.0); HEMOGLOBIN 8.6 gm/dL (14.0-18.0); MCH 31.3 pg (26.0-34.0); MCHC 32.6 g/dL (28.0-37.0); MCV 95.9 fL (80.0-100.0); RBC 2.76 mil/uL (4.50-6.00); WBC 6.2 thou/uL (4.0-11.0)
[2017-04-20 00:11] VITALS: BP 135/79
[2017-04-20 03:53] VITALS: BP 136/78
[2017-04-20 05:35] LABS: HEMATOCRIT 27.7 % (42.0-52.0); MCH 30.9 pg (26.0-34.0); MCHC 32.5 g/dL (28.0-37.0); MCV 95.2 fL (80.0-100.0); PLATELET COUNT 157 thou/uL (150-400); RBC 2.91 mil/uL (4.50-6.00); RDW 16.6 % (10.5-14.5); WBC 6.2 thou/uL (4.0-11.0)
[2017-04-20 05:36] LABS: MANUAL DIFF YES
[2017-04-20 05:41] LABS: CALCIUM 8.4 mg/dL (8.5-10.1); CREATININE 0.9 mg/dL (0.7-1.3); MAGNESIUM 1.5 mg/dL (1.8-2.4); POTASSIUM 3.8 mmol/L (3.5-5.1)
[2017-04-20 05:50] LABS: TOTAL CELL COUNT 100
[2017-04-20 05:52] LABS: ANISOCYTOSIS 1+; POLYCHROMASIA 1+
[2017-04-20 07:43] VITALS: BP 93/63
[2017-04-20 11:46] VITALS: BP 97/68
[2017-04-20 15:11] VITALS: BP 86/63
[2017-04-20 19:30] VITALS: BP 124/82
[2017-04-21 04:32] VITALS: BP 147/80
[2017-04-21 11:49] VITALS: BP 98/53
[2017-04-21 19:57] VITALS: BP 138/73
[2017-04-21 23:49] VITALS: BP 113/74
[2017-04-22 04:43] VITALS: BP 126/81
[2017-04-22 07:05] VITALS: BP 113/69
[2017-04-22 11:25] VITALS: BP 94/59
[2017-04-22 12:30] LABS: HEMATOCRIT 25.7 % (42.0-52.0); HEMOGLOBIN 8.2 gm/dL (14.0-18.0); MCH 30.4 pg (26.0-34.0); MCV 94.9 fL (80.0-100.0); RBC 2.71 mil/uL (4.50-6.00); RDW 16.8 % (10.5-14.5)
[2017-04-22 12:49] LABS: CALCIUM 8.1 mg/dL (8.5-10.1); CREATININE 1.1 mg/dL (0.7-1.3); POTASSIUM 4.8 mmol/L (3.5-5.1)
[2017-04-22 15:36] VITALS: BP 82/54
[2017-04-22 19:39] VITALS: BP 140/69
[2017-04-23 04:33] VITALS: BP 118/74
[2017-04-23 05:07] VITALS: BP 113/72
[2017-04-23 05:38] LABS: HEMATOCRIT 28.3 % (42.0-52.0); HEMOGLOBIN 9.2 gm/dL (14.0-18.0); MCH 30.5 pg (26.0-34.0); MCHC 32.4 g/dL (28.0-37.0); RBC 3.01 mil/uL (4.50-6.00); RDW 16.5 % (10.5-14.5); WBC 15.5 thou/uL (4.0-11.0)
[2017-04-23 05:47] LABS: CALCIUM 8.9 mg/dL (8.5-10.1); CREATININE 1.1 mg/dL (0.7-1.3); POTASSIUM 4.5 mmol/L (3.5-5.1)
[2017-04-23 12:41] VITALS: BP 125/68
[2017-04-23 17:28] VITALS: BP 112/72
[2017-04-23 18:33] LABS: URINE BILIRUBIN NEGATIVE (Negative); URINE BLOOD NEGATIVE (Negative); URINE COLOR YELLOW; URINE GLUCOSE-RANDOM* TRACE (Negative); URINE KETONES NEGATIVE (Negative); URINE LEUKOCYTES-REFLEX NEGATIVE (Negative); URINE PROTEIN (DIPSTICK) NEGATIVE (Negative)
[2017-04-23 19:51] VITALS: BP 124/87
[2017-04-24 04:36] VITALS: BP 100/59
[2017-04-24 09:17] VITALS: BP 104/63
[2017-04-24 12:52] VITALS: BP 100/57
[2017-04-24 16:29] VITALS: BP 120/67
[2017-04-24 19:45] VITALS: BP 122/62
[2017-04-24 22:53] VITALS: BP 132/71
[2017-04-25] VITALS (13 sets, daily range): BP systolic 93–130; BP diastolic 60–80
[2017-04-25 04:13] LABS: CREATININE 1.3 mg/dL (0.7-1.3); POTASSIUM 4.4 mmol/L (3.5-5.1)
[2017-04-25 10:00] LABS: ABG SAMPLE TYPE ARTERIAL; BE(vivo) -5.1 mmol/L (-2 to +3); HCO3 17.1 mmol/L (22.0-26.0); O2(CT) 13.8 mL/dL (15.0-23.0); O2Hb 90.5 % (92.0-98.0); PO2 59.6 mmHg (80.0-100.0); pH 7.471 (7.360-7.450); sO2 92.9 % (92.0-98.0); tCO2 17.9 mmol/L (24.0-30.0)
[2017-04-25 10:01] LABS: LACTATE 4.59 mmol/L (0.5-2.0)
[2017-04-25 10:05] LABS: STICK SITE R.RADIAL
[2017-04-25 10:27] LABS: HEMATOCRIT 29.2 % (42.0-52.0); HEMOGLOBIN 8.9 gm/dL (14.0-18.0); MCH 29.5 pg (26.0-34.0); MCHC 30.4 g/dL (28.0-37.0); MCV 96.8 fL (80.0-100.0); PLATELET COUNT 218 thou/uL (150-400); RBC 3.01 mil/uL (4.50-6.00); RDW 17.7 % (10.5-14.5); WBC 21.2 thou/uL (4.0-11.0)
[2017-04-25 10:35] LABS: MANUAL DIFF YES
[2017-04-25 11:34] LABS: ABSOLUTE NEUTROPHILS 19.1 thou/uL (1.4-8.2); TOTAL CELL COUNT 100
[2017-04-25 11:36] LABS: ANISOCYTOSIS 1+
[2017-04-25 12:47] LABS: URINE BILIRUBIN NEGATIVE (Negative); URINE BLOOD NEGATIVE (Negative); URINE COLOR YELLOW; URINE GLUCOSE-RANDOM* NEGATIVE (Negative); URINE KETONES NEGATIVE (Negative); URINE LEUKOCYTES-REFLEX NEGATIVE (Negative); URINE PROTEIN (DIPSTICK) NEGATIVE (Negative)
[2017-04-26] VITALS (24 sets, daily range): BP systolic 97–127; BP diastolic 55–82
[2017-04-26 04:30] LABS: HEMOGLOBIN 8.7 gm/dL (14.0-18.0); MCHC 32.1 g/dL (28.0-37.0); MCV 93.3 fL (80.0-100.0); PLATELET COUNT 197 thou/uL (150-400); RBC 2.89 mil/uL (4.50-6.00); RDW 16.8 % (10.5-14.5); WBC 22.5 thou/uL (4.0-11.0)
[2017-04-26 04:32] LABS: MANUAL DIFF YES
[2017-04-26 04:44] LABS: CALCIUM 8.7 mg/dL (8.5-10.1); CREATININE 1.7 mg/dL (0.7-1.3); MAGNESIUM 2.3 mg/dL (1.8-2.4); POTASSIUM 4.5 mmol/L (3.5-5.1)
[2017-04-26 05:27] LABS: ABSOLUTE NEUTROPHILS 21.6 thou/uL (1.4-8.2); ANISOCYTOSIS 1+; POLYCHROMASIA OCCASIONAL; TOTAL CELL COUNT 100; TOXIC GRANULATION 1+
[2017-04-27] VITALS (10 sets, daily range): BP systolic 102–124; BP diastolic 58–82
[2017-04-27 03:42] LABS: CALCIUM 8.2 mg/dL (8.5-10.1); CREATININE 1.7 mg/dL (0.7-1.3); POTASSIUM 4.6 mmol/L (3.5-5.1)
[2017-04-27 13:06] LABS: ABG SAMPLE TYPE ARTERIAL; BE(vivo) -3.4 mmol/L (-2 to +3); HCO3 24.9 mmol/L (22.0-26.0); LACTATE 1.69 mmol/L (0.5-2.0); O2(CT) 12.1 mL/dL (15.0-23.0); PCO2 63.5 mmHg (35.0-45.0); PO2 71.8 mmHg (80.0-100.0); sO2 90.6 % (92.0-98.0); tCO2 26.9 mmol/L (24.0-30.0)
[2017-04-27 13:07] LABS: STICK SITE LINE; pH 7.212 (7.360-7.450)
[2017-04-27 14:14] LABS: ABG SAMPLE TYPE ARTERIAL; BE(vivo) -1.8 mmol/L (-2 to +3); HCO3 23.6 mmol/L (22.0-26.0); LACTATE 1.67 mmol/L (0.5-2.0); O2(CT) 11.9 mL/dL (15.0-23.0); O2Hb 89.7 % (92.0-98.0); PCO2 42.5 mmHg (35.0-45.0); PO2 61.8 mmHg (80.0-100.0); STICK SITE LINE; pH 7.362 (7.360-7.450); sO2 90.9 % (92.0-98.0); tCO2 24.9 mmol/L (24.0-30.0)
[2017-04-27 14:15] LABS: ABG COMMENT BIPAP 14/6
[2017-04-28 04:42] LABS: HEMATOCRIT 22.8 % (42.0-52.0); HEMOGLOBIN 7.2 gm/dL (14.0-18.0); MCH 29.6 pg (26.0-34.0); MCHC 31.5 g/dL (28.0-37.0); MCV 93.8 fL (80.0-100.0); PLATELET COUNT 196 thou/uL (150-400); RBC 2.43 mil/uL (4.50-6.00); RDW 17.4 % (10.5-14.5); WBC 20.8 thou/uL (4.0-11.0)
[2017-04-28 04:43] LABS: MANUAL DIFF YES
[2017-04-28 04:57] LABS: ALBUMIN 1.2 g/dL (3.4-5.0); CALCIUM 8.1 mg/dL (8.5-10.1); CREATININE 2.3 mg/dL (0.7-1.3); MAGNESIUM 2.6 mg/dL (1.8-2.4); TOTAL BILIRUBIN 0.6 mg/dL (<0.1-1.0); TOTAL PROTEIN 5.8 g/dL (6.4-8.2)
[2017-04-28 05:14] LABS: ABG SAMPLE TYPE ARTERIAL; BE(vivo) -3.3 mmol/L (-2 to +3); HCO3 21.4 mmol/L (22.0-26.0); O2(CT) 11.1 mL/dL (15.0-23.0); O2Hb 91.2 % (92.0-98.0); PCO2 36.8 mmHg (35.0-45.0); PO2 70.2 mmHg (80.0-100.0); pH 7.382 (7.360-7.450); tCO2 22.5 mmol/L (24.0-30.0)
[2017-04-28 05:15] LABS: STICK SITE LINE
[2017-04-28 06:10] LABS: ABSOLUTE NEUTROPHILS 20.2 thou/uL (1.4-8.2); TOTAL CELL COUNT 100
[2017-04-28 06:12] LABS: ANISOCYTOSIS 2+; HYPOCHROMASIA SLIGHT; LARGE PLATELETS OCCASIONAL; TOXIC GRANULATION 1+
[2017-04-28 15:44] VITALS: BP 87/56
[2017-04-28 16:00] VITALS: BP 90/58
[2017-04-28 17:00] VITALS: BP 100/54; BP 97/63
[2017-04-28 17:02] LABS: ABG SAMPLE TYPE ARTERIAL; BE(vivo) -5.1 mmol/L (-2 to +3); HCO3 19.9 mmol/L (22.0-26.0); O2Hb 86.1 % (92.0-98.0); PCO2 36.6 mmHg (35.0-45.0); PO2 58.8 mmHg (80.0-100.0); pH 7.354 (7.360-7.450); sO2 89.6 % (92.0-98.0); tCO2 21.1 mmol/L (24.0-30.0)
[2017-04-28 17:03] LABS: LACTATE 4.46 mmol/L (0.5-2.0); STICK SITE ALINE
[2017-04-28 17:04] LABS: Pressure Support 14 cm H20
[2017-04-28 18:00] LABS: URINE BILIRUBIN NEGATIVE (Negative); URINE BLOOD 3+ (Negative); URINE COLOR YELLOW; URINE GLUCOSE-RANDOM* NEGATIVE (Negative); URINE KETONES NEGATIVE (Negative); URINE LEUKOCYTES-REFLEX NEGATIVE (Negative); URINE PROTEIN (DIPSTICK) NEGATIVE (Negative); URINE SPECIFIC GRAVITY >= 1.030 (1.005-1.035)
[2017-04-28 18:09] LABS: SQUAMOUS None Seen /LPF (0-3); URINE RBC 3-10 Few /HPF (0-2); URINE WBC-REFLEX None Seen /HPF (0-5)
[2017-04-28 18:10] LABS: CASTS None Seen /LPF (None Seen); CRYSTALS None Seen /LPF (None Seen)
[2017-04-28 19:00] VITALS: BP 117/71
[2017-04-28 19:45] VITALS: BP 100/54
[2017-04-28 20:05] VITALS: BP 132/81; BP 135/78; BP 140/68
[2017-04-28 20:33] LABS: HEMATOCRIT 22.9 % (42.0-52.0); MCH 30.1 pg (26.0-34.0); MCHC 32.9 g/dL (28.0-37.0); MCV 91.3 fL (80.0-100.0); PLATELET COUNT 172 thou/uL (150-400); RBC 2.51 mil/uL (4.50-6.00); RDW 17.1 % (10.5-14.5); WBC 22.8 thou/uL (4.0-11.0)
[2017-04-28 20:34] LABS: MANUAL DIFF YES
[2017-04-28 20:35] LABS: CALCIUM 7.9 mg/dL (8.5-10.1); POTASSIUM 4.9 mmol/L (3.5-5.1)
[2017-04-28 20:35] LABS: HEMOGLOBIN 7.5 gm/dL (14.0-18.0)
[2017-04-28 20:41] LABS: APTT 25.9 Seconds (24.5-32.8); FIBRINOGEN 406.4 mg/dL (210-360); INR 1.5; PROTIME 15.4 Seconds (9.3-11.4)
[2017-04-28 20:47] LABS: ALBUMIN 1.3 g/dL (3.4-5.0); TOTAL BILIRUBIN 0.7 mg/dL (<0.1-1.0); TOTAL PROTEIN 5.7 g/dL (6.4-8.2)
[2017-04-28 21:23] LABS: TOTAL CELL COUNT 100
[2017-04-28 21:24] LABS: ABSOLUTE NEUTROPHILS 21.7 thou/uL (1.4-8.2); ANISOCYTOSIS 1+; LARGE PLATELETS RARE
[2017-04-29] VITALS (8 sets, daily range): BP systolic 85–150; BP diastolic 55–71
[2017-04-29 00:30] LABS: ABG SAMPLE TYPE ARTERIAL; HCO3 22.3 mmol/L (22.0-26.0); LACTATE 2.11 mmol/L (0.5-2.0); O2Hb 93.5 % (92.0-98.0); PCO2 40.4 mmHg (35.0-45.0); PO2 76.2 mmHg (80.0-100.0); pH 7.359 (7.360-7.450); sO2 94.8 % (92.0-98.0); tCO2 23.5 mmol/L (24.0-30.0)
[2017-04-29 00:31] LABS: STICK SITE LINE
[2017-04-29 00:39] LABS: CREATININE 3.1 mg/dL (0.7-1.3); POTASSIUM 4.7 mmol/L (3.5-5.1)
[2017-04-29 02:17] LABS: HEMATOCRIT 27.7 % (42.0-52.0); HEMOGLOBIN 8.9 gm/dL (14.0-18.0)
[2017-04-29 05:47] LABS: HEMATOCRIT 27.2 % (42.0-52.0); HEMOGLOBIN 8.8 gm/dL (14.0-18.0); MCH 29.6 pg (26.0-34.0); MCHC 32.3 g/dL (28.0-37.0); MCV 91.6 fL (80.0-100.0); PLATELET COUNT 176 thou/uL (150-400); RBC 2.97 mil/uL (4.50-6.00); RDW 17.2 % (10.5-14.5)
[2017-04-29 05:51] LABS: MANUAL DIFF YES
[2017-04-29 05:56] LABS: POTASSIUM 4.7 mmol/L (3.5-5.1)
[2017-04-29 06:54] LABS: ABSOLUTE NEUTROPHILS 28.4 thou/uL (1.4-8.2); ANISOCYTOSIS 2+; NUCLEATED RBCS 2 /100WBC; TOTAL CELL COUNT 100
[2017-04-30] VITALS (23 sets, daily range): BP systolic 132–177; BP diastolic 60–86
[2017-04-30 04:27] LABS: HEMATOCRIT 28.3 % (42.0-52.0); HEMOGLOBIN 9.1 gm/dL (14.0-18.0); MCH 29.1 pg (26.0-34.0); MCHC 32.3 g/dL (28.0-37.0); MCV 90.3 fL (80.0-100.0); PLATELET COUNT 164 thou/uL (150-400); RBC 3.13 mil/uL (4.50-6.00); RDW 16.8 % (10.5-14.5); WBC 36.2 thou/uL (4.0-11.0)
[2017-04-30 04:31] LABS: MANUAL DIFF YES
[2017-04-30 04:40] LABS: CALCIUM 7.9 mg/dL (8.5-10.1); CREATININE 2.9 mg/dL (0.7-1.3); POTASSIUM 4.9 mmol/L (3.5-5.1)
[2017-04-30 05:58] LABS: ABSOLUTE NEUTROPHILS 33.3 thou/uL (1.4-8.2); ANISOCYTOSIS 1+; LARGE PLATELETS OCCASIONAL; NUCLEATED RBCS 2 /100WBC; POLYCHROMASIA OCCASIONAL; TOTAL CELL COUNT 100
[2017-05-01] VITALS (20 sets, daily range): BP systolic 100–176; BP diastolic 46–153
[2017-05-01 05:03] LABS: MCH 29.5 pg (26.0-34.0)
[2017-05-01 05:04] LABS: HEMATOCRIT 28.2 % (42.0-52.0); MCV 92.1 fL (80.0-100.0); RBC 3.07 mil/uL (4.50-6.00)
[2017-05-01 05:18] LABS: ALBUMIN 1.4 g/dL (3.4-5.0); PHOSPHORUS 6.3 mg/dL (2.5-4.9); POTASSIUM 4.7 mmol/L (3.5-5.1)
[2017-05-01 06:31] LABS: URINE BILIRUBIN NEGATIVE (Negative); URINE BLOOD TRACE (Negative); URINE COLOR YELLOW; URINE GLUCOSE-RANDOM* NEGATIVE (Negative); URINE KETONES NEGATIVE (Negative); URINE LEUKOCYTES-REFLEX NEGATIVE (Negative); URINE PROTEIN (DIPSTICK) NEGATIVE (Negative); URINE SPECIFIC GRAVITY 1.015 (1.005-1.035)
[2017-05-01 17:20] LABS: ABG SAMPLE TYPE ARTERIAL; BE(vivo) -0.3 mmol/L (-2 to +3); HCO3 24.4 mmol/L (22.0-26.0); LACTATE 1.33 mmol/L (0.5-2.0); O2(CT) 12.8 mL/dL (15.0-23.0); O2Hb 89.6 % (92.0-98.0); PCO2 40.3 mmHg (35.0-45.0); PO2 62.6 mmHg (80.0-100.0); Pressure Support 6 cm H20; STICK SITE R.BRACHIAL; tCO2 25.6 mmol/L (24.0-30.0)
[2017-05-02] VITALS (18 sets, daily range): BP systolic 107–158; BP diastolic 51–116
[2017-05-02 05:38] LABS: HEMATOCRIT 28.2 % (42.0-52.0); HEMOGLOBIN 8.9 gm/dL (14.0-18.0); MCH 29.7 pg (26.0-34.0); MCHC 31.7 g/dL (28.0-37.0); MCV 93.6 fL (80.0-100.0); PLATELET COUNT 135 thou/uL (150-400); RBC 3.01 mil/uL (4.50-6.00); RDW 16.9 % (10.5-14.5); WBC 34.6 thou/uL (4.0-11.0)
[2017-05-02 05:44] LABS: MANUAL DIFF YES
[2017-05-02 05:48] LABS: ALBUMIN 1.3 g/dL (3.4-5.0); CREATININE 3.2 mg/dL (0.7-1.3); POTASSIUM 4.8 mmol/L (3.5-5.1)
[2017-05-02 05:51] LABS: MAGNESIUM 3.2 mg/dL (1.8-2.4)
[2017-05-02 05:53] LABS: CALCIUM 7.6 mg/dL (8.5-10.1)
[2017-05-02 08:37] LABS: ABSOLUTE NEUTROPHILS 33.6 thou/uL (1.4-8.2); ANISOCYTOSIS 1+; HYPOCHROMASIA 1+; MYELOCYTES 1 %; PLATELET ESTIMATE NORMAL; POLYCHROMASIA 1+; TOTAL CELL COUNT 100
[2017-05-02 10:23] LABS: ABG SAMPLE TYPE ARTERIAL; BE(vivo) -4.6 mmol/L (-2 to +3); HCO3 21.2 mmol/L (22.0-26.0); LACTATE 1.55 mmol/L (0.5-2.0); O2(CT) 13.9 mL/dL (15.0-23.0); PCO2 42.3 mmHg (35.0-45.0); PO2 100.6 mmHg (80.0-100.0); pH 7.318 (7.360-7.450); sO2 97.1 % (92.0-98.0); tCO2 22.5 mmol/L (24.0-30.0)
[2017-05-02 10:25] LABS: STICK SITE R.RADIAL
[2017-05-02 10:26] LABS: TIDAL VOLUME 575 ml
[2017-05-03] VITALS (51 sets, daily range): BP systolic 57–122; BP diastolic 29–66
[2017-05-03 05:27] LABS: ABG SAMPLE TYPE ARTERIAL; BE(vivo) -4.9 mmol/L (-2 to +3); HCO3 22.2 mmol/L (22.0-26.0); LACTATE 1.57 mmol/L (0.5-2.0); O2(CT) 12.5 mL/dL (15.0-23.0); O2Hb 94.9 % (92.0-98.0); PO2 85.2 mmHg (80.0-100.0); sO2 94.9 % (92.0-98.0); tCO2 23.7 mmol/L (24.0-30.0)
[2017-05-03 05:28] LABS: STICK SITE L.BRACHIAL; pH 7.256 (7.360-7.450)
[2017-05-03 05:29] LABS: Pressure Support 6 cm H20
[2017-05-03 05:31] LABS: HEMATOCRIT 26.2 % (42.0-52.0); HEMOGLOBIN 8.4 gm/dL (14.0-18.0); MCH 30.4 pg (26.0-34.0); MCV 94.9 fL (80.0-100.0); PLATELET COUNT 109 thou/uL (150-400); RBC 2.76 mil/uL (4.50-6.00); RDW 18.2 % (10.5-14.5); WBC 30.8 thou/uL (4.0-11.0)
[2017-05-03 05:32] LABS: MANUAL DIFF YES
[2017-05-03 05:39] LABS: MAGNESIUM 3.5 mg/dL (1.8-2.4); PHOSPHORUS 8.5 mg/dL (2.5-4.9)
[2017-05-03 05:42] LABS: ALBUMIN 1.3 g/dL (3.4-5.0); CALCIUM 7.7 mg/dL (8.5-10.1); CREATININE 3.9 mg/dL (0.7-1.3); POTASSIUM 5.1 mmol/L (3.5-5.1); TOTAL BILIRUBIN 4.1 mg/dL (<0.1-1.0)
[2017-05-03 07:12] LABS: ABSOLUTE NEUTROPHILS 30.8 thou/uL (1.4-8.2); ANISOCYTOSIS 3+; MACROCYTES 1+; MICROCYTES 1+; POLYCHROMASIA OCCASIONAL; TOTAL CELL COUNT 100; TOXIC GRANULATION SLIGHT
== END 2017-05-03 21:51 | DRG 163 ==
LOC: ER 06:19 → 2N 07:56 → EROBS 07:56 → 2N 08:57 → ICU 04-16 20:44 → 2N 04-19 19:44 → ICU 04-25 11:14
PROVIDERS: Emergency Medicine; Family Medicine; Hospitalist; Internal Medicine; Internal Medicine Cardiovascular Disease; Internal Medicine Infectious Disease; Internal Medicine Nephrology; Internal Medicine Pulmonary Disease; Nurse Practitioner; Nurse Practitioner Family; Nurse Practitioner Gerontology; Specialist; Thoracic Surgery (Cardiothoracic Vascular Surgery)
DX: J90 Pleural effusion, not elsewhere classified (principal); A41.01 Sepsis due to Methicillin susceptible Staphylococcus aureus; N17.0 Acute kidney failure with tubular necrosis; E43 Unspecified severe protein-calorie malnutrition; J18.9 Pneumonia, unspecified organism; J96.01 Acute respiratory failure with hypoxia; J98.51 Mediastinitis; R65.20 Severe sepsis without septic shock; I31.3 Pericardial effusion (noninflammatory); F33.9 Major depressive disorder, recurrent, unspecified; I31.4 Cardiac tamponade; I13.0 Hypertensive heart and chronic kidney disease with heart failure and stage 1 through stage 4 chronic kidney disease, or unspecified chronic kidney disease; I50.32 Chronic diastolic (congestive) heart failure; J98.11 Atelectasis; D62 Acute posthemorrhagic anemia; S22.39XA Fracture of one rib, unspecified side, initial encounter for closed fracture; Z66 Do not resuscitate; J44.9 Chronic obstructive pulmonary disease, unspecified; E11.51 Type 2 diabetes mellitus with diabetic peripheral angiopathy without gangrene; E11.65 Type 2 diabetes mellitus with hyperglycemia; S09.90XA Unspecified injury of head, initial encounter; W18.39XA Other fall on same level, initial encounter; N40.0 Benign prostatic hyperplasia without lower urinary tract symptoms; I25.10 Atherosclerotic heart disease of native coronary artery without angina pectoris; N18.9 Chronic kidney disease, unspecified; E11.22 Type 2 diabetes mellitus with diabetic chronic kidney disease; S82.844A Nondisplaced bimalleolar fracture of right lower leg, initial encounter for closed fracture; E78.00 Pure hypercholesterolemia, unspecified; R26.81 Unsteadiness on feet; S62.501A Fracture of unspecified phalanx of right thumb, initial encounter for closed fracture; I95.9 Hypotension, unspecified; I48.0 Paroxysmal atrial fibrillation; R50.82 Postprocedural fever; E11.40 Type 2 diabetes mellitus with diabetic neuropathy, unspecified; S53.441A Ulnar collateral ligament sprain of right elbow, initial encounter; E83.42 Hypomagnesemia; G47.00 Insomnia, unspecified; F41.9 Anxiety disorder, unspecified; B95.61 Methicillin susceptible Staphylococcus aureus infection as the cause of diseases classified elsewhere; E11.319 Type 2 diabetes mellitus with unspecified diabetic retinopathy without macular edema; Z51.5 Encounter for palliative care; Y99.8 Other external cause status; Z79.4 Long term (current) use of insulin; Y92.89 Other specified places as the place of occurrence of the external cause; Y93.89 Activity, other specified; Z86.73 Personal history of transient ischemic attack (TIA), and cerebral infarction without residual deficits; Z88.8 Allergy status to other drugs, medicaments and biological substances; Z79.899 Other long term (current) drug therapy; Z90.49 Acquired absence of other specified parts of digestive tract; Z95.1 Presence of aortocoronary bypass graft; Z98.1 Arthrodesis status; Z87.891 Personal history of nicotine dependence
CPT/HCPCS: 10078; 10081; 27000; 47297; 48888; 50010; 50101; 50386; 50417; 50455; 50497; 50643; 50662; 51301; 51412; 51717; 53358; 54118; 56524; 56525; 56526; 56527; 56528; 57093; 62110; 62900; 64029; 64031; 65020; 65040; 65043; 65105; 65120; 70005; 83006